=== PATIENT | female | born 1955 | race Caucasian/White ===

== ENCOUNTER → 2018-11-09 07:45 | Outpatient (CLI) | payer MEDICARE, SELFPAY ==
[2018-11-09 08:15] LABS: Basophils # 0.1 K/mm3 (0-0.2); Basophils % 0.7 % (0.1-2.0); Eosinophils # 0.2 K/mm3 (0.0-0.4); Eosinophils % 2.4 % (0.1-12.0); Hematocrit 44.9 % (37.0-47.0); Hemoglobin 14.5 g/dL (12.2-16.2); Lymphocytes # 2.4 K/mm3 (0.7-4.5); Lymphocytes % 36.6 % (10-50); Mean Corpuscular HGB Conc 32.3 g/dL (31.8-35.4); Mean Corpuscular Hemoglobin 29.2 pg (27.0-31.2); Mean Corpuscular Volume 90.3 fl (81-99); Mean Platelet Volume 6.8 fl (7.4-10.4); Monocytes # 0.3 K/mm3 (0.1-1.0); Monocytes % 4.1 % (1.7-9.3); Neutrophils # 3.6 K/mm3 (1.8-7.8); Neutrophils % 56.2 % (37.0-80.0); Platelet Count 308 K/mm3 (142-424); Red Blood Count 4.98 M/mm3 (4.20-5.40); Red Cell Distribution Width 13.2 % (11.5-17.5); White Blood Count 6.4 K/mm3 (4.8-10.8)
[2018-11-09 09:05] LABS: Alanine Aminotransferase 27 U/L (12-78); Albumin Level 4.1 gm/dL (3.4-5.0); Albumin/Globulin Ratio 1.1 (1.1-1.8); Alkaline Phosphatase 72 U/L (46-116); Anion Gap 11.4 mEq/L (5-15); Aspartate Amino Transferase 21 U/L (15-37); Bilirubin,Total 0.4 mg/dL (0.2-1.0); Blood Urea Nitrogen 14 mg/dL (7-18); Calcium 9.3 mg/dL (8.5-10.1); Carbon Dioxide 30 mmol/L (21.0-32.0); Chloride 103 mmol/L (98-107); Chol/HDL Ratio 9.3 (1-3.5); Cholesterol 408 mg/dL (140-200); Estimated Glomerular Filt Rate 73 ml/min (>60); GFR (African American) 88 ML/MIN (>60); Globulin 3.9 gm/dl (1.3-3.2); Glucose 99 mg/dL (74-106); HDL Cholesterol 44 mg/dL (29-89); LDL Cholesterol 289 mg/dL (0-130); Potassium 4.4 mmoL/L (3.5-5.1); Sodium 140 mmol/L (136-145); T4 (Thyroxine) 7.9 ug/dl (4.7-13.3); Thyroid Stimulating Hormone 2.05 uIU/ml (0.358-3.740); Triglycerides 374 mg/dL (30-200); VLDL Cholesterol 75 mg/dL (0-40)
[2018-11-10 22:28] LABS: Vitamin D 25 Hydroxy 29.9 ng/mL (30.0-100.0)
== END ==
PROVIDERS: Visit Provider Nurse Practitioner Family
DX: E78.5 Hyperlipidemia, unspecified (principal); G89.29 Other chronic pain; M54.9 Dorsalgia, unspecified; R53.83 Other fatigue; E55.9 Vitamin D deficiency, unspecified
CPT/HCPCS: 36415; 80053; 80061; 82652; 84436; 84443; 85025

== ENCOUNTER → 2018-12-14 09:31 | Outpatient (CLI) | payer MEDICARE, MEDICAID, SELFPAY ==
--- NOTE | 2018-12-14 09:32 | MM_ITS ---
PROCEDURE: MM DIG SCREENING MAMM BI W/CAD CLINICAL INDICATION: baseline screening There is a history of breast cancer in patient's mother diagnosed after menopause and patient's maternal aunt diagnosed after menopause. COMPARISON: No exams were available for comparison TECHNIQUE: Standard CC and MLO images were obtained. R2 CAD reviewed. FINDINGS: Prominent diffuse somewhat heterogenic fibroglandular densities are seen in both breasts and the findings are fairly symmetrical bilaterally. There is a benign-appearing nodular density inferior central portion left breast at the 6 o'clock position and since are no previous studies for comparison recommended patient return for spot compression views and ultrasound for additional evaluation. There are no suspicious microcalcifications. IMPRESSION: Diffusely dense parenchymal pattern with asymmetric density left breast BI-RAD Category: 0 Need Additional Imaging Evaluation FOLLOW-UP: IMM Immediate Follow-up Recommended (A letter has been sent to the patient regarding results of the study.) Dictated by: Dr. Melecio Estrada MD 12/20/2018 13:[address] Melecio Estrada MD in [place] 12/20/2018 13:16
== END ==
PROVIDERS: PCP Nurse Practitioner Family; Visit Provider Nurse Practitioner Family
DX: Z12.31 Encounter for screening mammogram for malignant neoplasm of breast (principal)
CPT/HCPCS: 77067

== ENCOUNTER → 2018-12-14 17:07 | Outpatient (CLI) | payer MEDICARE, MEDICAID, SELFPAY | PROVIDERS: Visit Provider Nurse Practitioner Family | DX: N39.0 Urinary tract infection, site not specified (principal); Z12.31 Encounter for screening mammogram for malignant neoplasm of breast | CPT/HCPCS: 77067; 87086; 87088; 87186 ==

== ENCOUNTER → 2018-12-31 13:58 | Outpatient (CLI) | payer MEDICARE, MEDICAID, SELFPAY ==
--- NOTE | 2018-12-31 13:59 | US_ITS ---
PROCEDURE: US BREAST LT COMPLETE CLINICAL INDICATION: abnormal mamm asymmetric density on current Mammogram with no previous studies available for comparison COMPARISON: MM DIG MAMM DX UNILAT LT CAD from 12/31/2018 FINDINGS: There is a small hypoechoic solid nodular lesion at 10 o'clock position near the nipple measuring 0.3 by 0.3 cm. There is a 2nd somewhat oval hypoechoic solid lesion at the 7 o'clock position near the nipple measuring 0.9 x 0.4 by 1.0 cm in this shows rather homogeneous echogenicity and likely is a fibroadenoma. This likely corresponds to the asymmetric density which was evaluated with additional views on mammograms performed the same date even though the measurements suggest that it is slightly larger than the lesion seen on the mammogram. No other abnormality seen. There is normal appearing node in the axilla. IMPRESSION: Probable small benign-appearing solid lesions as described and recommend the patient return for six-month follow-up ultrasound along with a 6 month mammogram to evaluate for interval stability. Dictated by: Dr. Melecio Estrada MD 01/06/2019 18:[address] Melecio Estrada MD in [place] 01/06/2019 20:49
--- NOTE | 2018-12-31 13:59 | MM_ITS ---
PROCEDURE: MM DIG MAMM DX UNILAT LT CAD CLINICAL INDICATION: abnormal findings left breast COMPARISON: MM DIG SCREENING MAMM BI W/CAD from 12/14/2018 TECHNIQUE: Spot-compression MLO and CC views were obtained along with a 90 degree lateral view FINDINGS: The asymmetric density described earlier does not press out on the additional views but shows rather well-defined smooth borders. There is no associated architectural distortion. Ultrasound performed the same date showed a small solid lesion with homogeneous echogenicity suggesting that this represents a small fibroadenoma. Since there are no previous studies available for comparison recommend the patient have a six-month follow-up left mammogram and ultrasound to evaluate for interval stability. IMPRESSION: Heterogenic breast density with asymmetric nodular lesion 6- 7 o'clock position likely representing a fibroadenoma BI-RAD Category: 3 Probably Benign Finding Short Term Follow-up FOLLOW-UP: 6M 6Month Follow-up (A letter has been sent to the patient regarding results of the study.) Dictated by: Dr. Melecio Estrada MD 01/06/2019 20:[address] Melecio Estrada MD in [place] 01/06/2019 20:44
== END ==
PROVIDERS: PCP Nurse Practitioner Family; Visit Provider Nurse Practitioner Family
DX: R92.8 Other abnormal and inconclusive findings on diagnostic imaging of breast (principal)
CPT/HCPCS: 76641; 77065

== ENCOUNTER → 2019-04-10 16:54 | Outpatient (CLI) | payer MEDICARE, MEDICAID, SELFPAY ==
[2019-04-10 18:41] LABS: Amphetamine/Metha Screen,Urine Negative ng/mL (<1000); Barbiturates Screen,Urine Negative ng/mL (<200); Benzodiazepines Screen,Urine Negative ng/mL (<200); Cannabinoid Screen,Urine Negative ng/mL (<50); Cocaine Screen,Urine Negative ng/mL (<300); Methadone Screen,Urine Negative ng/mL (<300); Opiate Screen,Urine Negative ng/mL (<300); Phencyclidine Screen,Urine Negative ng/mL (<25)
== END ==
PROVIDERS: Visit Provider Nurse Practitioner Family
DX: Z79.899 Other long term (current) drug therapy (principal)
CPT/HCPCS: 80305

== ENCOUNTER → 2019-04-23 09:12 | Outpatient (CLI) | payer MEDICARE, MEDICAID, SELFPAY ==
[2019-04-23 09:44] LABS: Basophils % 0.7 % (0.1-2.0); Eosinophils # 0.2 K/mm3 (0.0-0.4); Eosinophils % 2.5 % (0.1-12.0); Hematocrit 43.9 % (37.0-47.0); Hemoglobin 14.3 g/dL (12.2-16.2); Lymphocytes # 2.1 K/mm3 (0.7-4.5); Lymphocytes % 33.4 % (10-50); Mean Corpuscular HGB Conc 32.5 g/dL (31.8-35.4); Mean Corpuscular Hemoglobin 29.1 pg (27.0-31.2); Mean Corpuscular Volume 89.6 fl (81-99); Mean Platelet Volume 7.3 fl (7.4-10.4); Monocytes # 0.3 K/mm3 (0.1-1.0); Monocytes % 4.2 % (1.7-9.3); Neutrophils # 3.7 K/mm3 (1.8-7.8); Neutrophils % 59.1 % (37.0-80.0); Platelet Count 297 K/mm3 (142-424); Red Cell Distribution Width 13.1 % (11.5-17.5); White Blood Count 6.3 K/mm3 (4.8-10.8)
[2019-04-23 10:06] LABS: Hemoglobin A1C 5.7 % (0.0-7.0)
[2019-04-23 10:59] LABS: Alanine Aminotransferase 33 U/L (9-52); Albumin/Globulin Ratio 1.1 (1.1-1.8); Alkaline Phosphatase 78 U/L (46-116); Anion Gap 17.3 mEq/L (5-15); Aspartate Amino Transferase 24 U/L (15-37); Bilirubin,Total 0.4 mg/dL (0.2-1.0); Blood Urea Nitrogen 19 mg/dL (7-18); Calcium 9.4 mg/dL (8.5-10.1); Carbon Dioxide 25 mmol/L (21.0-32.0); Chloride 105 mmol/L (98-107); Chol/HDL Ratio 4.5 (1-3.5); Cholesterol 227 mg/dL (140-200); Creatinine,Serum 0.93 mg/dL (0.55-1.02); Estimated Glomerular Filt Rate 61 ml/min (>60); GFR (African American) 74 ML/MIN (>60); Globulin 3.6 gm/dl (1.3-3.2); Glucose 103 mg/dL (74-106); HDL Cholesterol 50 mg/dL (29-89); LDL Cholesterol 136 mg/dL (0-130); Potassium 4.3 mmoL/L (3.5-5.1); Sodium 143 mmol/L (137-145); T4 (Thyroxine) 6.8 ug/dl (4.7-13.3); Thyroid Stimulating Hormone 1.59 uIU/ml (0.358-3.740); Total Protein,Serum 7.6 g/dL (6.4-8.2); Triglycerides 207 mg/dL (30-200); VLDL Cholesterol 41 mg/dL (0-40)
[2019-04-24 16:30] LABS: Vitamin D 25 Hydroxy 34.6 ng/mL (30.0-100.0)
== END ==
PROVIDERS: Visit Provider Nurse Practitioner Family
DX: Z79.899 Other long term (current) drug therapy (principal); G62.9 Polyneuropathy, unspecified
CPT/HCPCS: 36415; 80053; 80061; 82652; 83036; 84436; 84443; 85025

== ENCOUNTER → 2019-04-23 09:34 | Outpatient (POV) | payer MEDICARE, MEDICAID, SELFPAY | PROVIDERS: Visit Provider Dermatology | DX: Z00.00 Encounter for general adult medical examination without abnormal findings (principal) ==

== ENCOUNTER → 2019-07-08 08:46 | Outpatient (CLI) | payer MEDICARE, MEDICAID, SELFPAY ==
--- NOTE | 2019-07-08 08:53 | XR_ITS ---
PROCEDURE: XR FOREARM RT 2V CLINICAL INDICATION: fall Posttraumatic pain and swelling COMPARISON: XR ELBOW RT MIN 3V from 07/08/2019 XR HUMERUS RT from 07/08/2019 FINDINGS: There is a comminuted fracture involving the radial head with a transverse component through the neck region of the radius with a longitudinal component extending into the articular surface of the proximal radius. There is minimal separation of the fracture fragments at the articular surface region of approximately 2 mm. The remaining bony elements have an unremarkable appearance. There is displaced anterior and posterior fat pad. IMPRESSION: Comminuted fracture of the proximal radius with transverse and longitudinal intra-articular component not significantly displaced with intra-articular hemarthrosis Dictated by: Shahzad Clark MD 07/08/2019 15:01 Electronically signed by Shahzad Clark MD in [place] 07/08/2019 15:02
== END ==
PROVIDERS: PCP Nurse Practitioner Family; Visit Provider Nurse Practitioner Family
DX: W19.XXXA Unspecified fall, initial encounter (principal); M25.521 Pain in right elbow; M79.601 Pain in right arm
CPT/HCPCS: 73060; 73080; 73090

== ENCOUNTER → 2019-07-18 10:11 | Outpatient (CLI) | payer MEDICARE, MEDICAID, SELFPAY ==
--- NOTE | 2019-07-18 10:11 | US_ITS ---
PROCEDURE: MM DIG MAMM DX UNILAT LT CAD Digital Breast Tomosynthesis Included CLINICAL INDICATION: abnormal mamm, follow-up abnormal mammogram COMPARISON: MM DIG SCREENING MAMM BI W/CAD from 12/14/2018 US BREAST LT COMPLETE from 12/31/2018 MM DIG MAMM DX UNILAT LT CAD from 12/31/2018 US BREAST LT COMPLETE from 07/18/2019 TECHNIQUE: Standard CC and MLO images and 3D Tomosynthesis was obtained. R2 CAD reviewed. FINDINGS: Average fibroglandular tissue noted. Asymmetric density is noted in the inferior aspect of the left breast similar to the previous exam. This is only well seen on the MLO view not readily apparent on the cc view Left breast ultrasound: There is a small hypoechoic nodule at 10 o'clock at 3 mm not significantly changed and may represent a complex cyst. At the 1 o'clock region there is a heterogeneous area of slight decreased echogenicity and may only be related to fibroglandular tissue not well delineated in both planes. The previously noted nodular lesion at 7 o'clock is not demonstrated on today's exam on ultrasound. IMPRESSION: Probably benign findings. Recommend continued six-month follow-up BI-RAD Category: 3 Probably Benign Finding Short Term Follow-up FOLLOW-UP: 6M 6Month Follow-up (A letter has been sent to the patient regarding results of the study.) Dictated by: Shahzad Clark MD 07/26/2019 12:48 Electronically signed by Shahzad Clark MD in [place] 07/26/2019 12:48
== END ==
PROVIDERS: PCP Nurse Practitioner Family; Visit Provider Nurse Practitioner Family
DX: R92.8 Other abnormal and inconclusive findings on diagnostic imaging of breast (principal)
CPT/HCPCS: 76641; 77061; 77065; G0279

== ENCOUNTER 2019-07-19 08:36 | Outpatient (RCR) | payer MEDICARE, MEDICAID, SELFPAY | END 2019-07-19 08:40 | disposition home or self-care (01) | LOC: PT 08:36 | PROVIDERS: PCP Nurse Practitioner Family; Visit Provider Orthopaedic Surgery | DX: M25.521 Pain in right elbow (principal) | CPT/HCPCS: 97010; 97014; 97163; G0283 ==

== ENCOUNTER → 2019-07-26 08:08 | Outpatient (CLI) | payer MEDICARE, MEDICAID, SELFPAY ==
--- NOTE | 2019-07-26 08:14 | XR_ITS ---
PROCEDURE: XR ELBOW RT 2V CLINICAL INDICATION: radius FX COMPARISON: XR ELBOW RT MIN 3V from 07/08/2019 FINDINGS: There has been interval early healing of the comminuted fracture of the radial head. There is subtle blurring of the fracture lines. There is definitely less soft tissue swelling of the lower arm and proximal forearm when compared to the previous study. A small hemarthrosis remains with a small posterior fat pad sign seen. IMPRESSION: Early healing of comminuted fracture of the radial head as noted Dictated by: Dr. Melecio Estrada MD 07/26/2019 08:[address] Melecio Estrada MD in [place] 07/26/2019 08:40
== END ==
PROVIDERS: PCP Nurse Practitioner Family; Visit Provider Orthopaedic Surgery
DX: S52.121A Displaced fracture of head of right radius, initial encounter for closed fracture (principal)
CPT/HCPCS: 73070

== ENCOUNTER → 2019-09-30 12:54 | Outpatient (CLI) | payer MEDICARE, MEDICAID, SELFPAY ==
--- NOTE | 2019-09-30 13:11 | XR_ITS ---
PROCEDURE: XR ELBOW RT MIN 3V CLINICAL INDICATION: elbow fu Follow-up fracture COMPARISON: XR ELBOW RT MIN 3V from 07/08/2019 XR ELBOW RT 2V from 07/26/2019 FINDINGS: Nondisplaced radial head fracture once again noted. Fracture line still visible. Mild degenerative changes are present at the elbow joint. IMPRESSION: Radial head fracture line is still visible consistent with incomplete bony union with mild associated degenerative changes Dictated by: Shahzad Clark MD 09/30/2019 13:56 Electronically signed by Shahzad Clark MD in [place] 09/30/2019 13:56
== END ==
PROVIDERS: PCP Nurse Practitioner Family; Visit Provider Orthopaedic Surgery
DX: M25.521 Pain in right elbow (principal)
CPT/HCPCS: 73080

== ENCOUNTER → 2019-11-15 08:20 | Outpatient (CLI) | payer MEDICARE, MEDICAID, SELFPAY ==
--- NOTE | 2019-11-15 08:24 | XR_ITS ---
PROCEDURE: XR ELBOW RT MIN 3V CLINICAL INDICATION: right radial head fracture fu COMPARISON: CR XR ELBOW RT 2V from 07/26/2019 FINDINGS: Comparison made the previous stone right elbow film from 07/26/2019. The small avulsion fracture of the radial head appears essentially healed at this time. The posterior fat pad sign seen on the previous study has resolved consistent with resolving hemarthrosis. IMPRESSION: Essentially healed radial head fracture Dictated by: Dr. Melecio Estrada MD 11/15/2019 08:53 Dr. Melecio Estrada MD in [place] 11/15/2019 08:53
== END ==
PROVIDERS: PCP Nurse Practitioner Family; Visit Provider Orthopaedic Surgery
DX: S52.123A Displaced fracture of head of unspecified radius, initial encounter for closed fracture (principal)
CPT/HCPCS: 73080

== ENCOUNTER → 2020-01-23 13:33 | Outpatient (CLI) | payer MEDICARE, MEDICAID, SELFPAY ==
--- NOTE | 2020-01-23 13:33 | MM_ITS ---
PROCEDURE: MM DIG MAMM BI DX W/CAD Digital Breast Tomosynthesis Included CLINICAL INDICATION: 6 mth f/u abn mamm COMPARISON: MG MM DIG SCREENING MAMM BI W/CAD from 12/14/2018 MG MM DIG MAMM DX UNILAT LT CAD from 12/31/2018 MG MM DIG MAMM DX UNILAT LT CAD from 07/18/2019 TECHNIQUE: Standard CC and MLO images and 3D Tomosynthesis was obtained. R2 CAD reviewed. FINDINGS: Views heterogenic fibroglandular densities are seen throughout both breast. Again noted is the asymmetric nodular density lower central portion left breast at the 6 o'clock position stable and unchanged from the previous exams. There are stable tiny nodular benign-appearing there is no suspicious lesion and no suspicious microcalcifications. Densities upper outer quadrants of each breast. IMPRESSION: Moderate heterogenic breast density with no suspicious lesions seen BI-RAD Category: 2 Benign Finding(s) FOLLOW-UP: 1YR 1 Year Follow-up (A letter has been sent to the patient regarding results of the study.) Dictated by: Dr. Melecio Estrada MD 01/31/2020 08:07 Dr. Melecio Estrada MD in [place] 01/31/2020 08:07
--- NOTE | 2020-01-23 13:33 | US_ITS ---
PROCEDURE: US BREAST LT COMPLETE CLINICAL INDICATION: 6 mth f/u abn mamm COMPARISON: MG MM DIG MAMM DX UNILAT LT CAD from 07/18/2019 US US BREAST LT COMPLETE from 07/18/2019 FINDINGS: Small hypoechoic solid-appearing lesion 10 o'clock position near the nipple measuring 0.4 by 0.4 x 0.4 cm showing slightly heterogenic internal echogenicity. It is basically unchanged in size and overall appearance from the previous ultrasound exam 07/18/2019. This likely is a small fibroadenoma. There are findings suggesting ductal hyperplasia in the circumareolar region. There are couple normal appearing nodes in the axilla. IMPRESSION: Probable fibroadenoma which appears basically stable but recommend another follow-up ultrasound in July of 2020 at the time of the yearly mammogram Dictated by: Dr. Melecio Estrada MD 02/21/2020 12:06 Dr. Melecio Estrada MD in [place] 02/21/2020 12:06
== END ==
PROVIDERS: PCP Nurse Practitioner Family; Visit Provider Nurse Practitioner Family
DX: R92.8 Other abnormal and inconclusive findings on diagnostic imaging of breast (principal)
CPT/HCPCS: 76641; 77062; 77066; G0279

== ENCOUNTER → 2020-03-25 14:32 | Outpatient (CLI) | payer MEDICARE, MEDICAID, SELFPAY ==
[2020-03-25 14:48] LABS: Alanine Aminotransferase 29 U/L (12-78); Albumin Level 4.7 g/dl (3.5-5.0); Albumin/Globulin Ratio 1.4 (1.1-1.8); Alkaline Phosphatase 90 U/L (38-126); Anion Gap 11.9 mEq/L (5-15); Aspartate Amino Transferase 34 U/L (14-36); Bilirubin,Total 0.5 mg/dl (0.2-1.3); Blood Urea Nitrogen 16 mg/dl (7-17); Calcium 9.6 mg/dl (8.4-10.2); Carbon Dioxide 28 mmol/L (22.0-30.0); Chloride 103 mmol/L (98-107); Cholesterol 206 mg/dl (140-200); Estimated Glomerular Filt Rate 63 ml/min (>60); GFR (African American) 77 ML/MIN (>60); Globulin 3.4 g/dL (1.3-3.2); Glucose 111 mg/dl (74-100); HDL Cholesterol 51 mg/dl (40-60); Potassium 3.9 mmoL/L (3.5-5.1); Sodium 139 mmol/L (136-145); Total Protein,Serum 8.1 g/dl (6.3-8.2); Triglycerides 230 mg/dl (30-150); VLDL Cholesterol 46 mg/dL (0-40)
[2020-03-25 14:59] LABS: Direct LDL Cholesterol 108.32 mg/dL (100-129)
[2020-03-25 15:01] LABS: Basophils # 0.1 K/mm3 (0-0.2); Basophils % 1.2 % (0.1-2.0); Eosinophils # 0.1 K/mm3 (0.0-0.4); Eosinophils % 2.2 % (0.1-12.0); Hematocrit 44.4 % (37.0-47.0); Hemoglobin 15.1 g/dL (12.2-16.2); Lymphocytes % 34.8 % (10-50); Mean Corpuscular Volume 90.9 fl (81-99); Mean Platelet Volume 8.5 fl (7.4-10.4); Monocytes # 0.2 K/mm3 (0.1-1.0); Monocytes % 4.2 % (1.7-9.3); Neutrophils # 3.3 K/mm3 (1.8-7.8); Neutrophils % 57.6 % (37.0-80.0); Platelet Count 303 K/mm3 (142-424); Red Blood Count 4.89 M/mm3 (4.20-5.40); Red Cell Distribution Width 13.4 % (11.5-17.5); White Blood Count 5.7 K/mm3 (4.8-10.8)
[2020-03-25 15:05] LABS: T4 (Thyroxine) 7.8 ug/dl (5.53-11.0)
[2020-03-25 15:18] LABS: Thyroid Stimulating Hormone 1.79 uIU/mL (0.465-4.68)
== END ==
PROVIDERS: Visit Provider Nurse Practitioner Family
DX: E78.5 Hyperlipidemia, unspecified (principal); F32.9 Major depressive disorder, single episode, unspecified
CPT/HCPCS: 80053; 80061; 84436; 84443; 85025

== ENCOUNTER → 2020-03-30 14:10 | Outpatient (CLI) | payer MEDICARE, MEDICAID, SELFPAY ==
[2020-03-30 15:34] LABS: Hemoglobin A1C 5.6 % (4.0-6.0)
== END ==
PROVIDERS: Visit Provider Nurse Practitioner Family
DX: E11.9 Type 2 diabetes mellitus without complications (principal)
CPT/HCPCS: 83036

== ENCOUNTER → 2020-04-14 14:32 | Outpatient (CLI) | payer MEDICARE, MEDICAID, SELFPAY ==
--- NOTE | 2020-04-14 14:32 | CT_ITS ---
PROCEDURE: CT LUNG SCREENING CLINICAL INDICATION: screening Former smoker Quit smoking 4 years ago 30+ pack year smoking history COMPARISON: No exams were available for comparison TECHNIQUE: The exam was performed on a GE Light Speed [address] scanner using 2.90 mGy CTDI. A low dose helical CT CHEST was performed on a multi-detector scanner. All CT scans at the facility use one or more dose reduction, viz: automated exposure control, ma/kV adjustment per patient size (including targeted exams where dose is matched to indication, i.e. head), or iterative reconstruction technique. The LDCT was performed in a facility that meets the criteria for the screening program. Data regarding this exam was submitted to ACR which is an approved registry. The order for this exam indicates that it came as a result of a lung cancer screening counseling shard decision-making visit that included all the elements required of such a visit including smoking cessation. The radiologist interpreting this exam meets the [facility] criteria for the LDCT lung cancer screening program. The exam is reported using the Lung-RADS classification scale and reported to the ACR registry. NOTE: This study was performed for the specific purposes of lung cancer screening and is not an alternative to diagnostic chest CT. RADIATION DOSE: CTDI vol(CT dose Index-volume) = 2.90mG DLP (Dose Length Product) = 108.12 mGcm FINDINGS: There is calcified granuloma in the right upper lobe. Atelectatic or fibrotic changes are present in the lung bases. OTHER FINDINGS: Small hiatal hernia IMPRESSION: Lung-RADS Category 1 Negative Follow-up: Continue annual screening with LDCT in 12 months Dictated by: Shahzad Clark MD 04/20/2020 05:16 Shahzad Clark MD in [place] 04/20/2020 05:16
== END ==
PROVIDERS: PCP Nurse Practitioner Family; Visit Provider Nurse Practitioner Family
DX: Z87.891 Personal history of nicotine dependence (principal); Z12.11 Encounter for screening for malignant neoplasm of colon
CPT/HCPCS: 71271

== ENCOUNTER → 2020-06-19 13:55 | Outpatient (CLI) | payer MEDICARE, MEDICAID, SELFPAY ==
[2020-06-19 14:05] LABS: Chloride 104 mmol/L (98-107)
[2020-06-19 14:06] LABS: Potassium 4.4 mmoL/L (3.5-5.1); Sodium 142 mmol/L (136-145)
[2020-06-19 14:08] LABS: Alanine Aminotransferase 34 U/L (12-78); Albumin/Globulin Ratio 1.6 (1.1-1.8); Alkaline Phosphatase 82 U/L (38-126); Anion Gap 13.4 mEq/L (5-15); Aspartate Amino Transferase 40 U/L (14-36); Bilirubin,Total 0.6 mg/dl (0.2-1.3); Blood Urea Nitrogen 20 mg/dl (7-17); Carbon Dioxide 29 mmol/L (22.0-30.0); Estimated Glomerular Filt Rate 72 ml/min (>60); GFR (African American) 87 ML/MIN (>60); Globulin 3.1 g/dL (1.3-3.2); Total Protein,Serum 8.1 g/dl (6.3-8.2)
[2020-06-19 14:09] LABS: Chol/HDL Ratio 3.8 (1-3.5); Cholesterol 193 mg/dl (140-200); Glucose 99 mg/dl (74-100); HDL Cholesterol 51 mg/dl (40-60); Triglycerides 121 mg/dl (30-150); VLDL Cholesterol 24 mg/dL (0-40)
[2020-06-19 14:12] LABS: Basophils # 0.1 K/mm3 (0-0.2); Basophils % 0.7 % (0.1-2.0); Eosinophils # 0.2 K/mm3 (0.0-0.4); Eosinophils % 2.6 % (0.1-12.0); Hematocrit 44.3 % (37.0-47.0); Hemoglobin 14.1 g/dL (12.2-16.2); Lymphocytes # 2.3 K/mm3 (0.7-4.5); Mean Corpuscular HGB Conc 31.9 g/dL (31.8-35.4); Mean Corpuscular Hemoglobin 29.2 pg (27.0-31.2); Mean Corpuscular Volume 91.5 fl (81-99); Mean Platelet Volume 7.5 fl (7.4-10.4); Monocytes # 0.4 K/mm3 (0.1-1.0); Monocytes % 5.4 % (1.7-9.3); Neutrophils # 3.8 K/mm3 (1.8-7.8); Neutrophils % 57.3 % (37.0-80.0); Platelet Count 321 K/mm3 (142-424); Red Blood Count 4.84 M/mm3 (4.20-5.40); White Blood Count 6.7 K/mm3 (4.8-10.8)
[2020-06-19 14:16] LABS: Creatinine,Urine Random 30 mg/dL (Not Estab.)
[2020-06-19 14:19] LABS: Microalbumin < 6.000 mg/L (0-16.7)
[2020-06-19 14:20] LABS: Direct LDL Cholesterol 109.05 mg/dL (100-129)
[2020-06-19 14:25] LABS: T4 (Thyroxine) 7.8 ug/dl (5.53-11.0)
[2020-06-19 14:39] LABS: Hemoglobin A1C 5.9 % (4.0-6.0); Thyroid Stimulating Hormone 0.79 uIU/mL (0.465-4.68)
== END ==
PROVIDERS: Visit Provider Nurse Practitioner Family
DX: E78.5 Hyperlipidemia, unspecified (principal); E11.9 Type 2 diabetes mellitus without complications
CPT/HCPCS: 80053; 80061; 82043; 82570; 83036; 84436; 84443; 85025

== ENCOUNTER → 2020-09-16 15:52 | Outpatient (CLI) | payer MEDICARE, MEDICAID, SELFPAY ==
[2020-09-16 16:01] LABS: Basophils # 0.1 K/mm3 (0-0.2); Basophils % 1.3 % (0.1-2.0); Eosinophils # 0.1 K/mm3 (0.0-0.4); Eosinophils % 2.8 % (0.1-12.0); Hematocrit 41.1 % (37.0-47.0); Hemoglobin 14.2 g/dL (12.2-16.2); Mean Corpuscular HGB Conc 34.5 g/dL (31.8-35.4); Mean Corpuscular Hemoglobin 30.2 pg (27.0-31.2); Mean Corpuscular Volume 87.7 fl (81-99); Mean Platelet Volume 8.2 fl (7.4-10.4); Monocytes # 0.3 K/mm3 (0.1-1.0); Monocytes % 6.3 % (1.7-9.3); Neutrophils # 2.6 K/mm3 (1.8-7.8); Neutrophils % 50.6 % (37.0-80.0); Platelet Count 290 K/mm3 (142-424); Red Blood Count 4.69 M/mm3 (4.20-5.40); Red Cell Distribution Width 13.8 % (11.5-17.5); White Blood Count 5.2 K/mm3 (4.8-10.8)
[2020-09-16 16:45] LABS: Hemoglobin A1C 5.7 % (4.0-6.0)
[2020-09-16 16:50] LABS: Chloride 104 mmol/L (98-107); Sodium 142 mmol/L (136-145)
[2020-09-16 16:51] LABS: Potassium 4.5 mmoL/L (3.5-5.1)
[2020-09-16 16:53] LABS: Alanine Aminotransferase 29 U/L (12-78); Albumin Level 4.7 g/dl (3.5-5.0); Albumin/Globulin Ratio 1.6 (1.1-1.8); Alkaline Phosphatase 95 U/L (38-126); Anion Gap 14.5 mEq/L (5-15); Aspartate Amino Transferase 33 U/L (14-36); Bilirubin,Total 0.4 mg/dl (0.2-1.3); Blood Urea Nitrogen 19 mg/dl (7-17); Carbon Dioxide 28 mmol/L (22.0-30.0); Cholesterol 175 mg/dl (140-200); Estimated Glomerular Filt Rate 72 ml/min (>60); GFR (African American) 87 ML/MIN (>60); Globulin 2.9 g/dL (1.3-3.2); Total Protein,Serum 7.6 g/dl (6.3-8.2); Triglycerides 123 mg/dl (30-150); VLDL Cholesterol 25 mg/dL (0-40)
[2020-09-16 16:54] LABS: Calcium 9.3 mg/dl (8.4-10.2); Glucose 98 mg/dl (74-100); HDL Cholesterol 44 mg/dl (40-60)
[2020-09-16 17:09] LABS: 25-OH Vitamin D, Total 69.5 ng/mL (30-100)
[2020-09-16 17:11] LABS: T4 (Thyroxine) 7.4 ug/dl (5.53-11.0)
[2020-09-16 17:25] LABS: Thyroid Stimulating Hormone 0.86 uIU/mL (0.465-4.68)
== END ==
PROVIDERS: Visit Provider Nurse Practitioner Family
DX: E78.5 Hyperlipidemia, unspecified (principal); R53.83 Other fatigue; R73.03 Prediabetes; E55.9 Vitamin D deficiency, unspecified
CPT/HCPCS: 80053; 80061; 82306; 83036; 84436; 84443; 85025

== ENCOUNTER → 2020-12-16 14:27 | Outpatient (CLI) | payer MEDICARE, MEDICAID, SELFPAY ==
[2020-12-16 14:45] LABS: Alanine Aminotransferase 31 U/L (12-78); Albumin Level 4.4 g/dl (3.5-5.0); Albumin/Globulin Ratio 1.3 (1.1-1.8); Alkaline Phosphatase 79 U/L (38-126); Anion Gap 11.3 mEq/L (5-15); Aspartate Amino Transferase 36 U/L (14-36); Bilirubin,Total 0.6 mg/dl (0.2-1.3); Blood Urea Nitrogen 14 mg/dl (7-17); Calcium 9.3 mg/dl (8.4-10.2); Carbon Dioxide 29 mmol/L (22.0-30.0); Chloride 107 mmol/L (98-107); Chol/HDL Ratio 4.2 (1-3.5); Cholesterol 185 mg/dl (140-200); Estimated Glomerular Filt Rate 101 ml/min (>60); GFR (African American) 122 ML/MIN (>60); Globulin 3.3 g/dL (1.3-3.2); Glucose 99 mg/dl (74-100); HDL Cholesterol 44 mg/dl (40-60); Potassium 4.3 mmoL/L (3.5-5.1); Sodium 143 mmol/L (136-145); Total Protein,Serum 7.7 g/dl (6.3-8.2); Triglycerides 164 mg/dl (30-150); VLDL Cholesterol 33 mg/dL (0-40)
[2020-12-16 14:57] LABS: Direct LDL Cholesterol 100.41 mg/dL (100-129)
[2020-12-16 14:58] LABS: Amphetamine/Metha Screen,Urine Negative ng/ml (<1000); Barbiturates Screen,Urine Negative ng/ml (<200)
[2020-12-16 15:00] LABS: Basophils # 0.1 K/mm3 (0-0.2); Basophils % 0.9 % (0.1-2.0); Eosinophils # 0.1 K/mm3 (0.0-0.4); Eosinophils % 2.3 % (0.1-12.0); Hematocrit 44.5 % (37.0-47.0); Hemoglobin 14.6 g/dL (12.2-16.2); Lymphocytes # 1.8 K/mm3 (0.7-4.5); Lymphocytes % 30.5 % (10-50); Mean Corpuscular HGB Conc 32.8 g/dL (31.8-35.4); Mean Corpuscular Hemoglobin 29.9 pg (27.0-31.2); Mean Corpuscular Volume 91.2 fl (81-99); Mean Platelet Volume 8.9 fl (7.4-10.4); Monocytes # 0.3 K/mm3 (0.1-1.0); Monocytes % 4.7 % (1.7-9.3); Neutrophils # 3.7 K/mm3 (1.8-7.8); Neutrophils % 61.7 % (37.0-80.0); Platelet Count 403 K/mm3 (142-424); Red Blood Count 4.87 M/mm3 (4.20-5.40); Red Cell Distribution Width 13.7 % (11.5-17.5)
[2020-12-16 15:02] LABS: Benzodiazepines Screen,Urine Negative ng/ml (<200); Free T4 (Free Thyroxine) 1.21 ng/dl (0.78-2.19)
[2020-12-16 15:03] LABS: Cannabinoid Screen,Urine Negative ng/ml (<50)
[2020-12-16 15:04] LABS: Cocaine Screen,Urine Negative ng/ml (<300); Creatinine,Urine Random 95 mg/dL (Not Estab.); Methadone Screen,Urine Negative ng/ml (<300); Microalbumin < 6.000 mg/L (0-16.7)
[2020-12-16 15:05] LABS: Opiate Screen,Urine Negative ng/ml (<300); Phencyclidine Screen,Urine Negative ng/ml (<25)
[2020-12-16 15:16] LABS: Thyroid Stimulating Hormone 0.95 uIU/mL (0.465-4.68)
== END ==
PROVIDERS: Visit Provider Nurse Practitioner Family
DX: R73.03 Prediabetes (principal); Z79.899 Other long term (current) drug therapy; E78.5 Hyperlipidemia, unspecified
CPT/HCPCS: 80053; 80061; 80305; 82043; 82570; 83036; 84439; 84443; 85025

== ENCOUNTER → 2021-06-14 19:16 | Outpatient (CLI) | payer MEDICARE, MEDICAID, SELFPAY ==
[2021-06-14 17:04] LABS: MANUAL DIFFERENTIAL MANUAL DIFFERENTIAL (MANUAL DIFF)
[2021-06-14 17:45] LABS: Basophils # 0.1 K/mm3 (0-0.2); Basophils % 1.2 % (0.1-2.0); Eosinophils # 0.1 K/mm3 (0.0-0.4); Eosinophils % 0.9 % (0.1-12.0); Hematocrit 42.6 % (37.0-47.0); Hemoglobin 14.1 g/dL (12.2-16.2); Lymphocytes # 1.9 K/mm3 (0.7-4.5); Mean Corpuscular HGB Conc 33.2 g/dL (31.8-35.4); Mean Corpuscular Hemoglobin 29.9 pg (27.0-31.2); Mean Corpuscular Volume 90.2 fl (81-99); Mean Platelet Volume 8.1 fl (7.4-10.4); Monocytes # 0.3 K/mm3 (0.1-1.0); Monocytes % 4.1 % (1.7-9.3); Neutrophils # 4.1 K/mm3 (1.8-7.8); Neutrophils % 63.8 % (37.0-80.0); Platelet Count 308 K/mm3 (142-424); Red Blood Count 4.73 M/mm3 (4.20-5.40); Red Cell Distribution Width 13.1 % (11.5-17.5); White Blood Count 6.4 K/mm3 (4.8-10.8)
[2021-06-14 17:50] LABS: Alanine Aminotransferase 29 U/L (12-78); Albumin Level 4.6 g/dl (3.5-5.0); Albumin/Globulin Ratio 1.6 (1.1-1.8); Alkaline Phosphatase 89 U/L (38-126); Aspartate Amino Transferase 31 U/L (14-36); Bilirubin,Total 0.5 mg/dl (0.2-1.3); Blood Urea Nitrogen 16 mg/dl (7-17); Calcium 9.2 mg/dl (8.4-10.2); Carbon Dioxide 28 mmol/L (22.0-30.0); Chloride 106 mmol/L (98-107); Chol/HDL Ratio 3.9 (1-3.5); Cholesterol 176 mg/dl (140-200); Estimated Glomerular Filt Rate 72 ml/min (>60); GFR (African American) 87 ML/MIN (>60); Globulin 2.8 g/dL (1.3-3.2); Glucose 112 mg/dl (74-100); HDL Cholesterol 45 mg/dl (40-60); Sodium 142 mmol/L (136-145); Total Protein,Serum 7.4 g/dl (6.3-8.2); Triglycerides 208 mg/dl (30-150); VLDL Cholesterol 42 mg/dL (0-40)
[2021-06-14 18:01] LABS: Direct LDL Cholesterol 84.53 mg/dL (100-129)
[2021-06-14 18:07] LABS: Free T4 (Free Thyroxine) 1.15 ng/dl (0.78-2.19)
[2021-06-14 18:22] LABS: Thyroid Stimulating Hormone 1.12 uIU/mL (0.465-4.68)
[2021-06-14 18:29] LABS: Hemoglobin A1C 5.8 % (4.0-6.0)
[2021-06-14 18:51] LABS: Eosinophils % 1 % (0-3); Lymphocytes % 33 % (10-50); Monocytes % 4 % (2-9); Neutrophils % 61 % (42-76); Total Cells Counted 100
[2021-06-14 18:52] LABS: Platelet Estimate Normal; RBC Morphology Normal
== END ==
PROVIDERS: Visit Provider Nurse Practitioner Family
DX: R73.03 Prediabetes (principal); E78.5 Hyperlipidemia, unspecified; Z79.899 Other long term (current) drug therapy
CPT/HCPCS: 80053; 80061; 83036; 84439; 84443; 85007; 85014; 85018; 85048; 85049

== ENCOUNTER → 2021-09-09 16:26 | Outpatient (CLI) | payer MEDICARE, MEDICAID, SELFPAY ==
[2021-09-09 15:09] LABS: Basophils # 0.1 K/mm3 (0-0.2); Basophils % 0.8 % (0.1-2.0); Eosinophils # 0.3 K/mm3 (0.0-0.4); Eosinophils % 4.8 % (0.1-12.0); Hematocrit 42.4 % (37.0-47.0); Hemoglobin 14.2 g/dL (12.2-16.2); Lymphocytes # 1.7 K/mm3 (0.7-4.5); Lymphocytes % 24.7 % (10-50); Mean Corpuscular HGB Conc 33.5 g/dL (31.8-35.4); Mean Corpuscular Hemoglobin 29.5 pg (27.0-31.2); Mean Platelet Volume 7.6 fl (7.4-10.4); Monocytes # 0.4 K/mm3 (0.1-1.0); Monocytes % 5.2 % (1.7-9.3); Neutrophils # 4.5 K/mm3 (1.8-7.8); Neutrophils % 64.5 % (37.0-80.0); Platelet Count 354 K/mm3 (142-424); Red Blood Count 4.82 M/mm3 (4.20-5.40); Red Cell Distribution Width 12.5 % (11.5-17.5)
[2021-09-09 15:24] LABS: Chloride 103 mmol/L (98-107); Potassium 4.3 mmoL/L (3.5-5.1); Sodium 139 mmol/L (136-145)
[2021-09-09 15:26] LABS: Amylase 48 U/L (30-110); Blood Urea Nitrogen 16 mg/dl (7-17); Estimated Glomerular Filt Rate 72 ml/min (>60); GFR (African American) 87 ML/MIN (>60)
[2021-09-09 15:27] LABS: Alanine Aminotransferase 27 U/L (12-78); Albumin Level 4.4 g/dl (3.5-5.0); Albumin/Globulin Ratio 1.5 (1.1-1.8); Alkaline Phosphatase 87 U/L (38-126); Anion Gap 11.3 mEq/L (5-15); Aspartate Amino Transferase 36 U/L (14-36); Bilirubin,Total 0.7 mg/dl (0.2-1.3); Calcium 9.5 mg/dl (8.4-10.2); Carbon Dioxide 29 mmol/L (22.0-30.0); Globulin 2.9 g/dL (1.3-3.2); Glucose 111 mg/dl (74-100); HDL Cholesterol 53 mg/dl (40-60); Lipase 124 U/L (23-300); Total Protein,Serum 7.3 g/dl (6.3-8.2)
[2021-09-09 15:28] LABS: Chol/HDL Ratio 3.5 (1-3.5); Cholesterol 184 mg/dl (140-200); Triglycerides 169 mg/dl (30-150); VLDL Cholesterol 34 mg/dL (0-40)
[2021-09-09 15:38] LABS: Direct LDL Cholesterol 99.14 mg/dL (100-129)
[2021-09-09 15:45] LABS: 25-OH Vitamin D, Total 44.4 ng/mL (30-100)
[2021-09-09 15:57] LABS: Thyroid Stimulating Hormone 1.23 uIU/mL (0.465-4.68)
== END ==
PROVIDERS: Visit Provider Physician Assistant
DX: Z00.00 Encounter for general adult medical examination without abnormal findings (principal); R19.00 Intra-abdominal and pelvic swelling, mass and lump, unspecified site; R73.03 Prediabetes; E78.5 Hyperlipidemia, unspecified; G62.9 Polyneuropathy, unspecified
CPT/HCPCS: 80053; 80061; 82150; 82306; 83690; 84443; 85025

== ENCOUNTER → 2021-09-10 08:23 | Outpatient (CLI) | payer MEDICARE, MEDICAID, SELFPAY ==
--- NOTE | 2021-09-10 08:35 | XR_ITS ---
FINAL REPORT CLINICAL HISTORY: abdominal swelling FINDINGS: Chest: A single view of the chest demonstrates no acute cardiopulmonary process. Abdomen: Flat and upright views of the abdomen demonstrate a nonobstructive gas pattern. There is a moderate to large amount of retained stool. There is no free air. There are postoperative changes of the pelvis. IMPRESSION: No acute process. Moderate to large amount of retained stool. Reviewed, Interpreted and Dictated by Wyatt Shelton III, MD Transcribed by Padmaja Hammer Authenticated and [facility]
== END ==
PROVIDERS: PCP Physician Assistant; Visit Provider Physician Assistant
DX: R19.00 Intra-abdominal and pelvic swelling, mass and lump, unspecified site (principal)
CPT/HCPCS: 74021

== ENCOUNTER → 2021-09-21 07:14 | Outpatient (CLI) | payer MEDICARE, MEDICAID, SELFPAY ==
--- NOTE | 2021-09-21 07:15 | CT_ITS ---
FINAL REPORT TECHNIQUE: Axial images through the abdomen and pelvis were performed without contrast. This study was performed with techniques to keep radiation doses as low as reasonably achievable, (ALARA). Individualized dose reduction techniques using automated exposure control or adjustment of mA and/or kV according to the patient's size were employed. CLINICAL HISTORY: abdominal swelling and distention. FINDINGS: Abdomen: The lung bases are clear. There is a 1.8 cm cyst in the left liver lobe. The gallbladder is present. The spleen, pancreas, adrenals appear unremarkable. There is mild bilateral hydronephrosis. Pelvis: There is a large mass arising from the pelvis which appears predominantly cystic and measures approximately 27 cm in craniocaudal dimension and 22 cm in transverse dimension. There is extrinsic compression of the ureters by this mass. The urinary bladder is partially compressed. A small amount of pelvic free fluid is seen. The uterus is present. IMPRESSION: Large cystic mass arising from the pelvis, likely ovarian in origin. Ovarian neoplasia is a primary consideration. Gynecological evaluation is highly recommended. Mild bilateral hydronephrosis secondary to extrinsic compression of the ureters. Reviewed, Interpreted and Dictated by Les Sahu MD Transcribed by Tuyet Reagan Authenticated and . [facility]
--- NOTE | 2021-09-21 07:15 | MM_ITS ---
PROCEDURE INFORMATION: Exam: MG Bilateral Screening 3D Mammography Exam date and time: 09/21/2021 8:09 AM Age: 66 years old Clinical indication: Screening. Her mother had breast cancer in her 70s, and an aunt had breast cancer. TECHNIQUE: Imaging protocol: Bilateral Screening tomosynthesis and 2D mammography including computer-aided detection (CAD) when performed. COMPARISON: 1. MG MM DIG MAMM BI DX W/CAD 01/23/2020 1:46 PM 2. MG MM DIG MAMM DX UNILAT LT CAD 07/18/2019 10:23 AM 3. MG MM DIG MAMM DX UNILAT LT CAD 12/31/2018 2:41 PM 4. MG MM DIG SCREENING MAMM BI W/CAD 12/14/2018 9:52 AM FINDINGS: MAMMOGRAPHY: Breast composition: The breasts are heterogeneously dense, which may obscure small masses. Mass: No suspicious mass. Architectural distortion: None. Calcifications: No suspicious calcifications. Asymmetric density: None. Skin thickening: None. Axillary adenopathy: None. IMPRESSION: No mammographic evidence of malignancy. Annual screening is recommended unless otherwise clinically indicated. ASSESSMENT: BI-RADS Category 1: Negative
--- NOTE | 2021-09-21 07:15 | US_ITS ---
FINAL REPORT CLINICAL HISTORY: abdominal swelling, large mass in abdomen COMPARISON: CT dated September 21, 2021 FINDINGS: ABDOMINAL ULTRASOUND COMPLETE: TECHNIQUE: Ultrasound images of the abdomen were obtained. FINDINGS: There is a 2.4 x 1.4 cm cyst in the left lobe of the liver. The gallbladder is normal. The common duct is normal. The right kidney measures 12.1 cm in length and is normal in echogenicity without hydronephrosis. The left kidney measures 11.3 cm in length and is normal in echogenicity without hydronephrosis. The spleen is unremarkable. The aorta is normal in caliber. The vena cava is unremarkable. There is a large mass in the mid abdomen with internal septations and internal echoes. IMPRESSION: Large complex cystic mass highly concerning for ovarian neoplasm. Reviewed, Interpreted and Dictated by Les Sahu MD Transcribed by Tiago Clarke Authenticated and [facility]
== END ==
PROVIDERS: PCP Physician Assistant; Visit Provider Physician Assistant
DX: Z12.31 Encounter for screening mammogram for malignant neoplasm of breast (principal); R19.00 Intra-abdominal and pelvic swelling, mass and lump, unspecified site
CPT/HCPCS: 74176; 76700; 77063; 77067

== ENCOUNTER → 2021-09-22 13:59 | Outpatient (CLI) | payer MEDICARE, MEDICAID, SELFPAY ==
[2021-09-24 08:15] LABS: CA 19-9 16 U/mL (0-35)
[2021-09-24 09:14] LABS: CEA 1.8 ng/mL (0.0-4.7)
== END ==
PROVIDERS: PCP Physician Assistant; Visit Provider Obstetrics & Gynecology
DX: N83.8 Other noninflammatory disorders of ovary, fallopian tube and broad ligament (principal); R14.0 Abdominal distension (gaseous); R19.8 Other specified symptoms and signs involving the digestive system and abdomen; R97.1 Elevated cancer antigen 125 [CA 125]; R97.0 Elevated carcinoembryonic antigen [CEA]
CPT/HCPCS: 36415; 82378; 86305; 86316

== ENCOUNTER → 2022-08-03 08:58 | Outpatient (CLI) | payer MEDICARE, MEDICAID, SELFPAY ==
[2022-08-03 13:23] LABS: Basophils % 0.7 % (0.1-2.0); Eosinophils # 0.2 K/mm3 (0.0-0.4); Eosinophils % 2.9 % (0.1-12.0); Hematocrit 45.3 % (37.0-47.0); Hemoglobin 14.7 g/dL (12.2-16.2); Lymphocytes # 1.6 K/mm3 (0.7-4.5); Mean Corpuscular HGB Conc 32.4 g/dL (31.8-35.4); Mean Corpuscular Volume 89.5 fl (81-99); Mean Platelet Volume 8.8 fl (7.4-10.4); Monocytes # 0.3 K/mm3 (0.1-1.0); Monocytes % 4.6 % (1.7-9.3); Neutrophils # 4.2 K/mm3 (1.8-7.8); Neutrophils % 65.8 % (37.0-80.0); Platelet Count 359 K/mm3 (142-424); Red Blood Count 5.06 M/mm3 (4.20-5.40); Red Cell Distribution Width 13.6 % (11.5-17.5); White Blood Count 6.3 K/mm3 (4.8-10.8)
[2022-08-03 13:43] LABS: Alanine Aminotransferase 47 U/L (12-78); Albumin Level 4.9 g/dl (3.5-5.0); Albumin/Globulin Ratio 1.5 (1.1-1.8); Alkaline Phosphatase 123 U/L (38-126); Anion Gap 18.2 mEq/L (5-15); Aspartate Amino Transferase 52 U/L (14-36); Bilirubin,Total 0.6 mg/dl (0.2-1.3); Blood Urea Nitrogen 21 mg/dl (7-17); Calcium 9.3 mg/dl (8.4-10.2); Carbon Dioxide 29 mmol/L (22.0-30.0); Chloride 98 mmol/L (98-107); Chol/HDL Ratio 3.4 (1-3.5); Cholesterol 206 mg/dl (140-200); Estimated Glomerular Filt Rate 72 ml/min (>60); GFR (African American) 87 ML/MIN (>60); Globulin 3.2 g/dL (1.3-3.2); Glucose 129 mg/dl (74-100); HDL Cholesterol 61 mg/dl (40-60); Potassium 4.2 mmoL/L (3.5-5.1); Sodium 141 mmol/L (136-145); Total Protein,Serum 8.1 g/dl (6.3-8.2); Triglycerides 307 mg/dl (30-150); VLDL Cholesterol 61 mg/dL (0-40)
[2022-08-03 13:54] LABS: Direct LDL Cholesterol 107.13 mg/dL (100-129)
[2022-08-03 13:58] LABS: 25-OH Vitamin D, Total 43.5 ng/mL (30-100)
[2022-08-03 14:13] LABS: Thyroid Stimulating Hormone 1.51 uIU/mL (0.465-4.68)
[2022-08-03 20:07] LABS: Hemoglobin A1C 5.8 % (4.0-6.0)
== END ==
PROVIDERS: PCP Physician Assistant; Visit Provider Physician Assistant
DX: E55.9 Vitamin D deficiency, unspecified (principal); R73.03 Prediabetes; F43.10 Post-traumatic stress disorder, unspecified; E78.5 Hyperlipidemia, unspecified; F32.9 Major depressive disorder, single episode, unspecified; F41.9 Anxiety disorder, unspecified
CPT/HCPCS: 80053; 80061; 82306; 83036; 84443; 85025

== ENCOUNTER → 2022-09-23 09:21 | Outpatient (CLI) | payer MEDICARE, MEDICAID, SELFPAY ==
--- NOTE | 2022-09-23 09:23 | MM_ITS ---
PROCEDURE INFORMATION: Exam: MG Bilateral Screening 3D Mammography Exam date and time: 09/23/2022 9:42 AM Age: 67 years old Clinical indication: Screening examination; Family history of breast cancer in mother and in aunt TECHNIQUE: Imaging protocol: Bilateral Screening tomosynthesis and 2D mammography including computer-aided detection (CAD) when performed. COMPARISON: 1. MG MM DIG SCREENING MAMM BI W/CAD 09/21/2021 8:09 AM 2. MG MM DIG MAMM BI DX W/CAD 01/23/2020 1:46 PM FINDINGS: MAMMOGRAPHY: Breast composition: There are scattered areas of fibroglandular density. Mass: None. Architectural distortion: None. Calcifications: No suspicious calcifications. Asymmetric density: None. Skin thickening: None. Axillary adenopathy: None. IMPRESSION: No mammographic evidence of malignancy. Annual screening is recommended unless otherwise clinically indicated. ASSESSMENT: BI-RADS Category 1: Negative
== END ==
PROVIDERS: PCP Physician Assistant; Visit Provider Physician Assistant
DX: Z12.31 Encounter for screening mammogram for malignant neoplasm of breast (principal)
CPT/HCPCS: 77063; 77067

== ENCOUNTER 2023-04-26 11:43 | Outpatient (CLI) | payer MEDICARE, SELFPAY ==
[2023-04-26 12:02] LABS: Basophils # 0.1 K/mm3 (0-0.2); Basophils % 0.6 % (0.1-2.0); Eosinophils # 0.1 K/mm3 (0.0-0.4); Eosinophils % 1.2 % (0.1-12.0); Hematocrit 44.2 % (37.0-47.0); Hemoglobin 14.9 g/dL (12.2-16.2); Mean Corpuscular HGB Conc 33.7 g/dL (31.8-35.4); Mean Corpuscular Volume 89.1 fl (81-99); Mean Platelet Volume 7.8 fl (7.4-10.4); Monocytes # 0.3 K/mm3 (0.1-1.0); Monocytes % 4.2 % (1.7-9.3); Neutrophils # 5.7 K/mm3 (1.8-7.8); Neutrophils % 69.9 % (37.0-80.0); Platelet Count 283 K/mm3 (142-424); Red Blood Count 4.96 M/mm3 (4.20-5.40); Red Cell Distribution Width 13.3 % (11.5-17.5); White Blood Count 8.1 K/mm3 (4.8-10.8)
[2023-04-26 12:07] LABS: Alanine Aminotransferase 33 U/L (12-78); Albumin Level 4.8 g/dl (3.5-5.0); Albumin/Globulin Ratio 1.6 (1.1-1.8); Alkaline Phosphatase 98 U/L (38-126); Anion Gap 11.5 mEq/L (5-15); Aspartate Amino Transferase 34 U/L (14-36); Bilirubin,Total 0.4 mg/dl (0.2-1.3); Blood Urea Nitrogen 22 mg/dl (7-17); Calcium 9.9 mg/dl (8.4-10.2); Carbon Dioxide 32 mmol/L (22.0-30.0); Chloride 103 mmol/L (98-107); Chol/HDL Ratio 4.5 (1-3.5); Cholesterol 214 mg/dl (140-200); Estimated Glomerular Filt Rate 72 ml/min (>60); GFR (African American) 87 ML/MIN (>60); Glucose 111 mg/dl (74-100); HDL Cholesterol 48 mg/dl (40-60); Potassium 4.5 mmoL/L (3.5-5.1); Sodium 142 mmol/L (136-145); Total Protein,Serum 7.8 g/dl (6.3-8.2); Triglycerides 303 mg/dl (30-150); VLDL Cholesterol 61 mg/dL (0-40)
[2023-04-26 12:19] LABS: Direct LDL Cholesterol 110.31 mg/dL (100-129)
[2023-04-26 12:38] LABS: Thyroid Stimulating Hormone 0.02 uIU/mL (0.465-4.68)
[2023-04-26 13:04] LABS: Vitamin B12 > 1000 pg/mL (239-931)
== END 2023-04-26 23:59 ==
LOC: LAB.DROPOF 11:44
PROVIDERS: PCP Physician Assistant; Visit Provider Physician Assistant
DX: E78.5 Hyperlipidemia, unspecified; E55.9 Vitamin D deficiency, unspecified; G62.89 Other specified polyneuropathies; R79.1 Abnormal coagulation profile
CPT/HCPCS: 80053; 80061; 82306; 82607; 84443; 85025

== ENCOUNTER 2023-05-04 12:15 | Outpatient (CLI) | payer MEDICARE, SELFPAY ==
[2023-05-04 14:02] LABS: Thyroid Stimulating Hormone 0.02 uIU/mL (0.465-4.68)
== END 2023-05-04 23:59 ==
LOC: LAB.DROPOF 12:16
PROVIDERS: PCP Physician Assistant; Visit Provider Physician Assistant
DX: F41.9 Anxiety disorder, unspecified (principal); Z79.899 Other long term (current) drug therapy
CPT/HCPCS: 84443

== ENCOUNTER 2023-05-22 09:01 | Outpatient (CLI) | payer MEDICARE, SELFPAY ==
[2023-05-22 10:15] LABS: Free Thyroxine Index 2.3 ug/dL (5.93-13.13); T4 (Thyroxine) 7.7 ug/dl (5.53-11.0); Triiodothryronine (T3) Uptake 30 % (23.5-40.5)
[2023-05-22 10:29] LABS: Thyroid Stimulating Hormone 1.56 uIU/mL (0.465-4.68)
[2023-05-23 13:10] LABS: Thyroid Peroxidase Antibodies 13 IU/mL (0-34)
[2023-05-25 08:59] LABS: Thyroid Stimulating Immunoglob <0.10 IU/L (0.00-0.55)
== END 2023-05-22 23:59 ==
LOC: LAB 09:02
PROVIDERS: PCP Physician Assistant; Visit Provider Physician Assistant
DX: R79.89 Other specified abnormal findings of blood chemistry (principal); E03.9 Hypothyroidism, unspecified
CPT/HCPCS: 36415; 84436; 84443; 84445; 84479; 86376

== ENCOUNTER 2023-05-26 12:26 | Outpatient (CLI) | payer MEDICARE, SELFPAY ==
--- NOTE | 2023-05-26 12:27 | US_ITS ---
FINAL REPORT TECHNIQUE: Real-time grayscale and color ultrasound of the thyroid was performed. CLINICAL HISTORY: low tsh COMPARISON: None FINDINGS: The thyroid gland measures 45 mm on the right and 43 mm on the left. The isthmus measures 2 mm. The parenchyma is unremarkable . Nodules: There are multiple small nodules. The largest nodule on the right measures 13 x 10 x 6 mm mostly solid hypoechoic TR 4. The largest nodule on the left measures 8 x 7 x 5 cystic and solid isoechoic TR 2. There are several other less than 5 mm nodules. IMPRESSION: Bilateral thyroid nodules as above. Recommend follow-up ultrasound for the dominant nodule on the right in 6 to 12 months per TI-RADS criteria. Reviewed, Interpreted and Dictated by Wyatt Shelton III, MD Transcribed by Shreya Hinds Authenticated and [facility]
== END 2023-05-26 23:59 ==
LOC: RAD 12:27
PROVIDERS: PCP Physician Assistant; Visit Provider Physician Assistant
DX: R79.89 Other specified abnormal findings of blood chemistry (principal)
CPT/HCPCS: 76536

== ENCOUNTER 2024-03-27 08:24 | Outpatient (CLI) | payer MEDICARE, SELFPAY ==
--- NOTE | 2024-03-27 08:28 | MM_ITS ---
PROCEDURE INFORMATION: Exam: MG Bilateral Screening 3D Mammography Exam date and time: 03/27/2024 8:20 AM Age: 68 years old Clinical indication: Screening examination TECHNIQUE: Imaging protocol: Bilateral Screening tomosynthesis and 2D mammography including computer-aided detection (CAD) when performed. COMPARISON: 1. MG MM DIG SCREENING MAMM BI W/CAD 09/23/2022 9:42 AM 2. MG MM DIG SCREENING MAMM BI W/CAD 09/21/2021 8:09 AM FINDINGS: MAMMOGRAPHY: Breast composition: There are scattered areas of fibroglandular density. Mass: No suspicious masses. Architectural distortion: None. Calcifications: No suspicious calcifications. Asymmetric density: None. Skin thickening: None. Axillary adenopathy: None. IMPRESSION: No mammographic evidence of malignancy. Annual screening is recommended unless otherwise clinically indicated. ASSESSMENT: BI-RADS Category 1: Negative.
== END 2024-03-27 23:59 | disposition home or self-care (01) ==
LOC: RAD 08:25
PROVIDERS: PCP Physician Assistant; Visit Provider Physician Assistant
DX: Z12.31 Encounter for screening mammogram for malignant neoplasm of breast (principal)
CPT/HCPCS: 77063; 77067

== ENCOUNTER 2025-01-14 08:42 | Outpatient (CLI) | payer MEDICARE, SELFPAY ==
--- NOTE | 2025-01-14 08:45 | XR_ITS ---
FINAL REPORT TECHNIQUE: Bone densitometry calculations of the lumbar spine and left hip were obtained. CLINICAL HISTORY: SCREENING COMPARISON: None FINDINGS: Using L1-4, the bone mineral density of the spine is 0.861 g/cm2, corresponding to T-score of -1.7 and a Z score of 0.3. This is within the range of osteopenia. Using the left hip, the bone mineral density of the femoral neck is 0.672 g/cm2, corresponding to a T-score of -1.6 and a Z-score of 0.1. This is within the range of osteopenia. FRAX 10 year fracture risk is 2.3% for a hip fracture and 15% for a major osteoporotic fracture. NOTE: T-score: Standard deviation compared with peak bone mass of young adult mean. *Following the recommendations of the International Society of Bone densitometry, classification of hip BMD is based on the lower of two T-scores; total hip or femoral neck. IMPRESSION: 1. Bone mineral density of the lumbar spine within the range of osteopenia. 2. Bone mineral density of the left femoral neck within the range of osteopenia. Reviewed, Interpreted and Dictated by Zohra Irwin MD Transcribed by Shreya Hinds Authenticated and [facility]
--- NOTE | 2025-01-14 08:46 | CT_ITS ---
FINAL REPORT TECHNIQUE: Thin section axial images were obtained through the lungs using a low-dose technique per lung cancer screening protocol. Reconstruction images were obtained using the axial data. Exam was performed using dose reduction technique. CLINICAL HISTORY: SCREENING former smoker quit 32 years ago smoked 1 ppd x 19 years FINDINGS: CTDLvol: 2.9 DLP: 109.42 Former smoker 32 pack year history. Lungs: No acute pulmonary abnormality. No suspicious nodules. There are vascular calcifications of the aorta. There are scattered multivessel coronary artery calcifications. Lymph nodes: No thoracic lymph there is a small left pre-vascular lymph node measuring 13 mm that is unchanged from prior Mediastinum: Heart size is normal. Pleura/pericardium: No pleural or pericardial effusion. Other: No acute abnormality in the upper abdomen. IMPRESSION: No suspicious pulmonary nodule or mass. Lung RADS: 1 Recommendation: Recommend repeat low-dose chest CT in 1 year. Reviewed, Interpreted and Dictated by Justin Cooley MD Transcribed by ELOISA Reynolds Authenticated and [facility]
--- OUTSIDE RECORDS SUMMARY | 2025-01-14 08:48 | XMS_ITS | Clinical Summary ---
[facility] Address [address] [place] [address] Care Team Providers Care Hat Trimmer Name Role Phone Yessenia Jaimes Primary Care Provider [phone] Allergies Active Allergy Reactions Criticality Noted Date Comments Ampicillin Rash Low 09/29/2021 Medications hydrOXYzine (ATARAX) 25 MG tablet Take 25 mg by mouth As Needed for Anxiety. 09/11/2019 Active Linzess 145 MCG capsule capsule Take 145 mcg by mouth Daily. 09/09/2021 Active gabapentin (NEURONTIN) 300 MG capsule Take 300 mg by mouth 3 (Three) Times a Day. 09/17/2021 Active sertraline (ZOLOFT) 50 MG tablet Take 50 mg by mouth Every Night. 09/06/2021 Active atorvastatin (LIPITOR) 80 MG tablet Take 80 mg by mouth Daily. 09/06/2021 Active docusate sodium (COLACE) 100 MG capsule Take 2 capsules by mouth 2 (Two) Times a Day. 60 capsule 3 10/08/2021 10:35 AM EDT 10/08/2021 Active polyethylene glycol (MIRALAX) 17 GM/SCOOP powder Mix 17g ( 1 capful) in water and drink by mouth daily. 238 g 10/08/2021 10:35 AM EDT 10/08/2021 Active Active Problems Problem Noted Date Diagnosed Date Pelvic mass 09/29/2021 Family History Medical History Relation Name Comments Breast cancer Maternal Aunt Shante Batista Breast cancer Mother Haritha Murray Relation Name Status Comments Maternal Aunt Shante Batista Mother Haritha Murray Social History Tobacco Use Types Packs/Day Years Used Date Smoking Tobacco: Former Cigarettes 1 18 0 08/29/1974 - 03/15/1992 Smokeless Tobacco: Never Alcohol Use Standard Drinks/Week Comments Yes 4 (1 standard drink = 0.6 oz pur e alcohol) 4 drinks weekly AUDIT-C Answer Date Recorded Q1: How often do you have a drink containing alc ohol? Monthly or less 10/05/2021 Q2: How many drinks containi ng alcohol do you have on a typical day when you are drinking? 1 or 2 10/05/2021 Q3: How often do you have si x or more drinks on one occasion? Never 10/05/2021 PHQ-2 Answer Date Recorded Retired PHQ-9: Brief Depression Severity Measure Score 0 09/29/2021 Abuse Screen Answer Date Recorded Unsafe at Home or Work/School Not on file Feels Threatened by Someone? Not on file 11/2022 Does Anyone Keep You from Co ntacting Others or Doint Things Outside the Home? Not on file 12/19/2022 Physical Sign of Abuse Present Not on file 1 Housing Stability Answer Date Recorded Current Living Arrangements Not on file 11/2022 Potentially Unsafe Housing Conditions Not on leni e 12/19/2022 Family and Community Support Answer Erasto e Recorded Help with Day-to-Day Activities Not on file 12/19/2022 Lonely or Isolated Not on file 12/19/2022 Employment Answer Date Recorded Do you want help finding or keeping work or a duncan b? Not on file 12/19/2022 Disabilities Answer Date Recorded Concentrating, Remembering, or Making Decisions Difficulty Not on file 12/19/2022 Doing Errands Independently Difficulty Not on fi le 12/19/2022 Education Answer Date Recorded Help with school or training? Not on file Preferred Language Not on file 12/19/2022 Comments No Sex and Gender Information Value Date Recorded Sex Assigned at Not on file Legal Sex Female 4:32 PM EDT Gender Identity Not on file Sexual Orientation Not on file Last Filed Vital Signs Vital Sign Reading Time Taken Comments Blood Pressure 114/71 10/28/2021 12:57 PM EDT Pulse 109 10/28/2021 12:57 PM EDT Temperature 36.7 C (98.1 F) 10/08/2021 7:00 AM EDT Respiratory Rate 16 10/28/2021 12:57 PM EDT Oxygen Saturation 98% 10/28/2021 12:57 PM EDT Inhaled Oxygen Concentration - - Weight 62.9 kg (138 lb 9.6 oz) 10/28/2021 12:57 PM EDT Height 165.1 cm (5' 5 ) 10/28/2021 12:57 PM EDT Body Mass Index 23.06 10/28/2021 12:57 PM EDT Plan of Treatment Health Maintenance Due Date Last Done Comments DXA SCAN 1956 TDAP/TD VACCINES (1 - Tdap) 05/21/1975 MAMMOGRAM 1996 COLOGUARD 2001 COLON CANCER SCREENING 5 YEA R SIGMOIDOSCOPY 2001 COLONOSCOPY [address] CANCER SCREENING 2001 CT COLONOGRAPHY 2001 FECAL OCCULT BLOOD TEST 2001 FIT Testing (1 year) 2001 Pneumococcal Vaccine 50+ (1 of 1 - PCV) 2006 ZOSTER VACCINE (2 of 2) 09/14/2021 07/20/2021 ANNUAL PHYSICAL 09/29/2021 HEPATITIS C SCREENING 09/29/2021 INFLUENZA VACCINE 10/11/2024 COVID-19 Vaccine (5 - 2024-2 6 season) 2024 07/20/2021, 02/19/2021, 07/03/2020, Additional history exists Medical Devices Implanted Type Area Ballaster Device Identifier Shelf Expiration Date Model / Serial / Lot Hemost Abs Surgicel Pwdr 3gm - [id number] Implanted:Qty : 1 on 10/05/2021 by Sigrid Schwartz MD at [facility] Implant N/A: Abdomen [employer] [id number] 01/10/2023 [facility] / / [id number] Insurance MEDICARE A & B MEDICAID [id number] Advance Directives * CPR (Attempt to Resuscitate) (Latest Code Status on File) Date Activated Date Inactivated Comments 10/05/2021 3:22 PM 10/08/2021 1:18 PM Question Answer Comments Code Status (Patient has no pulse and is not breathing): CPR (Attempt to Resuscitate) Medical Interventions (Patie nt has pulse or is breathing): Full Support Level Of Support Discussed With: Patient Care Teams Hat Trimmer Relationship Specialty Start Date End Date Yessenia Jaimes PA PCP - General Physician Associate Merchant 09/29/21
--- OUTSIDE RECORDS SUMMARY | 2025-01-14 08:48 | XMS_ITS | Continuity of Care Document ---
Author Organization [place] - [employer] Address [address] [place] [address] Assessment Encounter Date Assessment Date Assessment LastModified by Organization Details LastModified Time 12/26/2024 12/26/2024 Patient presente d to office today for their Medicare Annual Wellness Visit. Education was provided on healthy nutrition, including a diet rich in fruits and vegetables, minimizing simple carbohydrates, salt, and saturated fats. Encouraged regular cardiovascular exercise such as walking at least 30 minutes daily, 5 times per week. Emphasized preventive health measures and educated pt on fall prevention and community-based lifestyle interventions to help reduce health risks and promote healthy living. Not available 12/26/2024 13:21:17 Plan of Treatment Reminders Order Date Submit Date Provider Last Modified By Organization Details Last Modified Time Details Appointments None recorded. Lab CMP, serum or plasma [facility]24 [facility] [address] [place], [address], 11:09:25 CBC w/ auto diff 2024 025 [place] [facility] [place], [address], 11:09:24 vitamin D, 25-hydroxy , total, serum 2024 025 [place] [facility], [facility] [place], [address], 11:09:28 TSH, ultra-sens itive, serum 2024 [place] [facility] ([place]), [address], [place], [address], 11:09:27 lipid panel, serum 2024 [place] [facility] ([place]), [address], [place], [address], 11:09:26 Referral None recorded. Procedures None recorded. Surgeries None recorded. Imaging bone density [address] (Scheduling), [address], [place], [address], 09:58:15 LDCT, chest, for lung cancer screening [address] (Scheduling), [address], [place], [address], 09:58:43 Medication Orders None recorded. Patient TargetsNo targets recorded. Patient Instructions Encounter Date Encounter Id Patient Instructions Last Modified By Organization Details Last Modified Time 12/26/2024 [id number] high cholesterol : care instructions [email or web address] Not available 12/26/2024 14:51:34 Discussed and explained advance directives such as standard forms to the . Face to face discussion lasted for a duration of ___ minutes. Not available 12/26/2024 13:21:17 Reason for Referral None Reported. Results Created Date Observation Date Name Description Value Unit Range Abnormal Flag Note LastModifiedBy Organization Detail LastModifiedTime 12/27/1912/27/2024 CBC WITH DIFFE RENTI AL/PL ATELE T WBC 7.5 x10e3 /uL 3.4-10 .8 normal Not Available [facility] ([facility]) [address] [facility], [place], [address], 12/27/2024 11:09:24 12/27/1912/27/2024 CBC WITH DIFFE RENTI AL/PL ATELE T RBC 4.63 x10e6 /uL 3.77-5 .28 normal Not Available [facility] ([facility]) [address] [place], [address], 12/27/2024 11:09:24 12/27/19 25 12/27/2024 CBC WITH DIFFE RENTI AL/PL ATELE T hemoglobin 13.8 g/dL 11.1-1 5.9 normal Not Available [facility] ([facility]) [address] [place], [address], 12/27/2024 11:09:24 12/27/1912/27/2024 CBC WITH DIFFE RENTI AL/PL ATELE T hematocrit 41.9 % 34.0-4 6.6 normal Not Available [facility] ([facility]) [address] [place], [address], 12/27/2024 11:09:24 12/27/19 25 12/27/2024 CBC WITH DIFFE RENTI AL/PL ATELE T MCV 91 fL 79-97 normal Not Available [facility] ([facility]) [address] [place], [address], 12/27/2024 11:09:24 12/27/19 25 12/27/2024 CBC WITH DIFFE RENTI AL/PL ATELE T MCH 29.8 pg 26.6-3 3.0 normal Not Available [facility] ([facility]) [address] [place], [address], 12/27/2024 11:09:24 12/27/19 25 12/27/2024 CBC WITH DIFFE RENTI AL/PL ATELE T MCHC 32.9 g/dL 31.5-3 5.7 normal Not Available [facility] ([facility]) [address] [place], [address], 12/27/2024 11:09:24 10/1612/27/2024 CBC WITH DIFFE RENTI AL/PL ATELE T RDW 13.1 % 11.7-1 5.4 Not Available [facility] ([facility]) [address] [facility], [place], [address], 12/27/2024 11:09:24 12/27/19 25 12/27/2024 CBC WITH DIFFE RENTI AL/PL ATELE T platelets 285 x10e3 /uL 150-45 0 normal Not Available [facility] ([facility]) [address] [facility], [place], [address], 12/27/2024 11:09:24 12/27/1912/27/2024 CBC WITH DIFFE RENTI AL/PL ATELE T neutrophils 57 % not estab. normal Not Available [facility] ([facility]) [address] [facility], [place], [address], 12/27/2024 11:09:24 12/27/19 25 12/27/2024 CBC WITH DIFFE RENTI AL/PL ATELE T lymphs 32 % not estab. normal Not Available [facility] ([facility]) [address] [facility], [place], [address], 12/27/2024 11:09:24 12/27/19 25 12/27/2024 CBC WITH DIFFE RENTI AL/PL ATELE T monocytes 7 % not estab. normal Not Available [facility] ([facility]) [address] [facility], [place], [address], 12/27/2024 11:09:24 12/27/19 25 12/27/2024 CBC WITH DIFFE RENTI AL/PL ATELE T eos 3 % not estab. normal Not Available [facility] ([facility]) [address] [facility], [place], [address], 12/27/2024 11:09:24 12/27/19 25 12/27/2024 CBC WITH DIFFE RENTI AL/PL ATELE T basos 1 % not estab. 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 0 normal Not Available [facility] ([facility]) [address] [facility], [place], [address], 12/27/2024 11:09:24 12/27/19 25 12/27/2024 CBC WITH DIFFE RENTI AL/PL ATELE T lymphs (absolute) 2.4 x10e3 /uL 0.7-3. 1 normal Not Available [facility] ([facility]) [address] [facility], [place], [address], 12/27/2024 11:09:24 12/27/19 25 12/27/2024 CBC WITH DIFFE RENTI AL/PL ATELE T monocytes(ab solute) 0.5 x10e3 /uL 0.1-0. 9 normal Not Available [facility] ([facility]) [address] [facility], [place], [address], 12/27/2024 11:09:24 12/27/19 25 12/27/2024 CBC WITH DIFFE RENTI AL/PL ATELE T eos (absolute) 0.2 x10e3 /uL 0.0-0. 4 normal Not Available [facility] ([facility]) [address] [place], [address], 12/27/2024 11:09:24 12/27/19 25 12/27/2024 CBC WITH DIFFE RENTI AL/PL ATELE T baso (absolute) 0.0 x10e3 /uL 0.0-0. 2 normal Not Available [facility] ([facility]) [address] [facility], [place], [address], 12/27/2024 11:09:24 12/27/19 25 12/27/2024 CBC WITH DIFFE RENTI AL/PL ATELE T immature granulocytes 0 % not estab. Not Available [facility] ([facility]) [address] [facility], [place], [address], 12/27/2024 11:09:24 12/27/19 25 12/27/2024 CBC WITH DIFFE RENTI AL/PL ATELE T immature grans (abs) 0.0 x10e3 /uL 0.0-0. 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 METAB OLIC PANEL (14) glucose 88 mg/dL 70-99 normal Not Available [facility] ([facility]) [address] [place], [address], 12/27/2024 11:09:25 12/27/19 25 12/27/2024 COMP. METAB OLIC PANEL (14) BUN 25 mg/dL 8-27 normal Not Available [facility] ([facility]) [address] [facility] [place], [address], 12/27/2024 11:09:25 12/27/19 25 12/27/2024 COMP. METAB OLIC PANEL (14) creatinine 0.78 mg/dL 0.57-1 .00 normal Not Available [facility] ([facility]) [address] [facility] [place], [address], 12/27/2024 11:09:25 12/27/19 25 12/27/2024 COMP. METAB OLIC PANEL (14) eGFR 83 mL/mi n/1.7 3 >59 normal Not Available [facility] ([facility]) [address] [facility] [place], [address], 12/27/2024 11:09:25 12/27/19 25 12/27/2024 COMP. METAB OLIC PANEL (14) BUN/creatini ne ratio 32 12-28 above high normal Not Available [facility] ([facility]) [address] [facility] [place], [address], 12/27/2024 11:09:25 12/27/19 25 12/27/2024 COMP. METAB OLIC PANEL (14) sodium 141 mmol/ L 134-14 4 normal Not Available [facility] ([facility]) [address] [facility] [place], [address], 12/27/2024 11:09:25 12/27/19 25 12/27/2024 COMP. METAB OLIC PANEL (14) potassium 4.6 mmol/ L 3.5-5. 2 normal Not Available [facility] ([facility]) [address] [facility] [place], [address], 12/27/2024 11:09:25 12/27/19 25 12/27/2024 COMP. METAB OLIC PANEL (14) chloride 99 mmol/ L 96-106 normal Not Available [facility] ([facility]) [address] [facility] [place], [address], 12/27/2024 11:09:25 12/27/19 25 12/27/2024 COMP. METAB OLIC PANEL (14) carbon dioxide, total 22 mmol/ L 20-29 normal Not Available [facility] ([facility]) [address] [facility] [place], [address], 12/27/2024 11:09:25 12/27/19 25 12/27/2024 COMP. METAB OLIC PANEL (14) calcium 9.7 mg/dL 8.7-10 .3 normal Not Available [facility] ([facility]) [address] [facility] [place], [address], 12/27/2024 11:09:25 12/27/19 25 12/27/2024 COMP. METAB OLIC PANEL (14) protein, total 7.2 g/dL 6.0-8. 5 normal Not Available [facility] ([facility]) [address] [facility] [place], [address], 12/27/2024 11:09:25 12/27/19 25 12/27/2024 COMP. METAB OLIC PANEL (14) albumin 4.7 g/dL 3.9-4. 9 normal Not Available [facility] ([facility]) [address] [facility] [place], [address], 12/27/2024 11:09:25 12/27/19 25 12/27/2024 COMP. METAB OLIC PANEL (14) globulin, total 2.5 g/dL 1.5-4. 5 Not Available [facility] ([facility]) [address] [facility] [place], [address], 12/27/2024 11:09:25 12/27/19 25 12/27/2024 COMP. METAB OLIC PANEL (14) bilirubin, total 0.4 mg/dL 0.0-1. 2 normal Not Available [facility] ([facility]) [address] [facility] [place], [address], 12/27/2024 11:09:25 12/27/19 25 12/27/2024 COMP. METAB OLIC PANEL (14) alkaline phosphatase 98 IU/L 49-135 normal Not Available [facility] ([facility]) [address] [place], [address], 12/27/2024 11:09:25 12/27/19 25 12/27/2024 COMP. METAB OLIC PANEL (14) AST (SGOT) 29 IU/L 0-40 normal Not Available [facility] ([facility]) [address] [place], [address], 12/27/2024 11:09:25 12/27/19 25 12/27/2024 COMP. METAB OLIC PANEL (14) ALT (SGPT) 28 IU/L 0-32 normal Not Available [facility] ([facility]) [address] [place], [address], 12/27/2024 11:09:25 12/27/19 25 12/27/2024 LIPID PANEL cholesterol, total 197 mg/dL 100-19 9 normal Not Available [facility] ([facility]) [address] [place], [address], 12/27/2024 11:09:26 12/27/19 25 12/27/2024 LIPID PANEL triglyceride s 330 mg/dL 0-149 above high normal Not Available [facility] ([facility]) [address] [place], [address], 12/27/2024 11:09:26 12/27/19 25 12/27/2024 LIPID PANEL HDL cholesterol 48 mg/dL >39 normal Not Available [facility]) [address] [place], [address], 12/27/2024 11:09:26 12/27/19 25 12/27/2024 LIPID PANEL VLDL cholesterol jesus 55 mg/dL 5-40 above high normal Not Available [facility] ([facility]) [address] [facility], [place], [address], 12/27/2024 11:09:26 12/27/1912/27/2024 LIPID PANEL LDL chol calc ([facility]) 94 mg/dL 0-99 Not Available [facility]) [address] [facility], [place], [address], 12/27/2024 11:09:26 12/27/1912/27/2024 LIPID PANEL LDL calc comment: 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 The Endoc rine Socie ty went on to furth er defin e vitam in D insuf ficie ncy as a level betwe en 21 and 29 ng/mL (2). 1. IOM (Inst itute of Medic ine). 2010. Dieta ry refer ence vicente es for calci um and D. Judy hubbard DC: The Natio nal [facility] [facility] Press . 2. Aaron samuels MF, Binsofi ey [place], Deysi off-F errar i LEVINE, et al. Evalu ation , treat ment, and preve ntion of vitam in D defic iency : an Endoc rine Socie ty clini jesus pract ice guide line. JCEM. 2010; 96(7) :1911 -30. Not Available [facility] ([facility]) [address], [place], [address], 12/27/2024 11:09:28 Result Notes None recorded. Problems Name Problem SNOMED Code Status Onset Date Resolution Date Notes Provider Name and Address Organization Details Recorded Time Acute urinary tract infection 191133443 Active 2024 ELOISA Lopez [address] [place] [address], [address], [email or web address] 10:15:52 Hyperlipide gera 87495490 Active 2024 ELOISA Lopez [address] [place] [address], [address]49[address] 8, [employer] 10:16:04 Osteoarthri tis 495696745 Active 2024 ELOISA Lopez [address] [place] [address], [address] 8, [employer] 10:16:10 Pain of elbow region 20903764 Active 2024 ELOISA Lopez [address] [place] [address], [address] 8, [employer] 10:09:08 Mild dehydration 1640149714475 Active 2024 ELOISA Lopez [address] [place] [address], [address] 8, [employer] 13:17:05 Problem Notes None recorded. Procedures Surgical History Date Name Laterality Status Provider Name and Address Organization Details Recorded Time 03/27/19 25 Most Recent Mammogram completed [employer] 05/14/2024 09:44:35 03/15/19 25 Shave Biopsy completed ELOISA Lopez [address] [place] [address], [address], [employer] 03/15/2024 11:26:58 Back Surgery completed [employer] 03/15/2024 09:44:33 Hysterectomy completed [facility] 03/15/2024 09:44:33 Other completed [facility] [facility] [employer] 03/15/2024 09:55:06 Imaging Results None recorded. Procedure Notes None recorded. Medical Equipment None Reported. Allergies Allergen ID Allergen Name Allergen Category Reaction Reaction Severity Criticality Documentation Date Start Date Code Code System Note Provider Name and Address Organization Details Recorded Time 24510 Product containin g penicilli n (product) medicatio n rash Not available Not available 03/15/2024 92023 8001 SNOMED [employer], [employer] 09:50:39 77186 ampicilli n medicatio n Not available Not available Not available 03/15/2024 733 RxNorm [employer], [employer] 09:50:36 Medications Name Sig Start Date Stop Date Status Note LastModified by Organization Details LastModified Time celecoxib 200 mg capsule TAKE 1 CAPSULE BY MOUTH ONCE DAILY active Not Available Not Available No t Available atorvastati n 80 mg tablet TAKE 1 TABLET BY MOUTH ONCE DAILY AT BEDTIME active Not Available Not Available No t Available Medrol (Sebastián) 4 mg tablets in a dose pack Take 1 dose pk by oral route as directed for 6 days. 10/24 completed Not Available Not Available Not Available gabapentin 300 mg capsule TAKE 1 CAPSULE BY MOUTH THREE TIMES DAILY 03/12 completed Not Available Not Available Not Available levofloxaci n 500 mg tablet TAKE 1 TABLET BY MOUTH EVERY 24 HOURS FOR 7 DAYS 10/11 completed Not Available Not Available Not Available sertraline 50 mg tablet TAKE 1 TABLET BY MOUTH ONCE DAILY FOR DEPRESSIO N active Not Available Not Available No t Available amoxicillin 875 mg-potassiu m clavulanate 125 mg tablet TAKE 1 TABLET BY MOUTH TWICE DAILY FOR 10 DAYS 05/14 completed Not Available Not Available Not Available hydroxyzine pamoate 25 mg capsule TAKE 1 CAPSULE BY MOUTH EVERY DAY AT BEDTIME active Not Available Not Available No t Available cyclobenzap rine 5 mg tablet TAKE 1 TABLET BY MOUTH TWICE DAILY NEEDED FOR MUSCLE SPASM 03/12 completed Not Available Not Available Not Available PreserVisio n AREDS 2 tablets daily active Not Available Not Available No t Available Vitamin D3 50 mcg (2,000 unit) tablet Take 1 tablet every day by oral route. active Not Available Not Available No t Available Glucosamine -Chondroiti n 3X Triple Strength 750 mg-600 mg tablet Take 2 tablets every day by oral route. active Not Available Not Available No t Available Multivitami n Women 50 Plus once daily active Not Available Not Available No t Available Voltaren Arthritis Pain 1 % topical gel APPLY 2 GRAMS TO THE AFFECTED AREA(S) BY TOPICAL ROUTE 4 TIMES PER DAY 2024 active Not Available Not Available Not Avai lable potassium citrate (replacemen t) 99 mg capsule Take 3 capsules every day by oral route. active Not Available Not Available No t Available Vitals Date Recorded Body height Body mass index (BMI) Body weight Body temperature Heart rate Oxygen saturation Oxygen saturation in Arterial blood by Pulse oximetry Systolic And Diastolic Systolic And Diastolic Provider Name and Address Organization Details Last Updated DateTime 167.64 cm 24.5 kg/m2 00551.0 4 g 98 [degF] 92 /min 95 % 95 % 151/84 mm[Hg] 147/90 mm[Hg] Kaylin Piña [employer], [employer] 10:36:50 Social History Question Answer Notes LastModified by Organizat ion Details LastModified Time Tobacco Smoking Status Former Smoker Rasheeda langley, [employer], [employer] 03/15/2024 09:44:32 Do You Have An Advance Directive? No Information not available 03/15/2024 Is Your Home Air Conditioned? Yes Information not available 03/15/2024 If You Are , What Was Your Level Of Alcohol Consumption Prior To ? None Information not available 03/15/2024 How Many Years Have You Consumed Alcohol? 6 Information not available 03/15/2024 Do You Wear A Helmet When Biking? No Information not available 03/15/2024 Are You Blind Or Do You Have Difficulty Seeing? Yes Information not available 03/15/2024 What Is Your Level Of Caffeine Consumption? Moderate Information not available 03/15/2024 Are You A Caregiver? No [email or web address] Information not available 12/26/2024 What Type Of Cigar Wrapper Do You Use? None Information not available 03/15/2024 Have You Been To An Area Known To Be High Risk For COVID-19? No Information not available 03/15/2024 Are You Deaf Or Do You Have Serious Difficulty Hearing? No Information not available 03/15/2024 What Type Of Diet Are You Following? REGULAR Information not available 03/15/2024 What Is The Highest Grade Or Level Of School You Have Completed Or The Highest Degree You Have Received? [id number] [email or web address] Information not available 12/26/2024 How Many Days Of Moderate To Strenuous Exercise, Like A Brisk Walk, Did You Do In The Last 7 Days? 2 Information not available 03/15/2024 Have There Been Any Changes To Your Family Or Social Situation? No Information no t available 03/15/2024 When Did You Quit Smoking? 16+[email or web address] cigarette Information not available 03/15/2024 Are There Any Guns Present In Your Home? Yes Information not available 03/15/2024 Which Of Your Hands Is Dominant? Right Information not available 03/15/2024 Do You Engage In Moderate/heavy Exercise (e.g. Brisk Walk, Jogging, Strength Training, Etc)? No [email or web address] Information not available 12/26/2024 What Is Your Home Situation? Other Information not available 03/15/2024 How Many Times In The Past Year Have You Used An Illegal Drug Or Used A Prescription Medication For Nonmedical Reasons? 0 [email or web address] Information not available 12/26/2024 Where Do You Live? Apartment Information not available 12/26/2024 Do You Have A Medical Power Of Legal Librarian? No Information not available 03/15/2024 What Was The Date Of Your Most Recent Tobacco Screening? 12/26/2024 [email or web address] Information not available 12/26/2024 Have You Ever Been Counseled For Unhealthy Alcohol Use? No [email or web address] Information not available 12/26/2024 Do You Have Any Pets? Yes Information not available 03/15/2024 What Is Your Relationship Status? Information not available 03/15/2024 Have You Repeated Any Grades? Yes Information not available 03/15/2024 Do You Wear A Seatbelt When Driving Or As A Passenger? Yes [email or web address] Information not available 12/26/2024 Do You Use Your Seat Belt Or Car Seat Routinely? Yes Information not available 03/15/2024 Are You Sexually Active? No Information not available 03/15/2024 Do You Have Any Siblings? Yes Information not available 03/15/2024 Do You Have Smoke And Carbon Monoxide Detectors In Your Home? No Information not available 03/15/2024 At What Age Did You Start Smoking Tobacco? 18 Information not available 03/15/2024 Are You Passively Exposed To Smoke? Yes Information no t available 03/15/2024 Are There Any Smokers In Your House? No Information not available 03/15/2024 How Much Tobacco Do You Smoke? No Information not available 03/15/2024 Do You Participate In Social Media? Yes Information not available 03/15/2024 What Types Of Sporting Activities Do You Participate In? None [email or web address] Information not available 12/26/2024 Do You Use Sunscreen Routinely? No Information not available 03/15/2024 Has Tobacco Cessation Counseling Been Provided? No Information not available 03/15/2024 How Many Years Have You Smoked Tobacco? 19 Information not available 03/15/2024 Have You Recently Traveled Abroad? No Information not available 03/15/2024 Do You Have Difficulty Walking Or Climbing Stairs? No Information not available 03/15/2024 Are You Currently In School? No Information not available 03/15/2024 What Contraceptive Method Was Reported At Start Of This Visit? Female Sterilization Information not available 05/14/2024 Do You Feel Safe In Your Home? Yes Information not available 12/26/2024 Do You Have Any Dietary Restrictions? No Information not available 03/15/2024 How Many Days In The Past Year Have You Consumed 4 Or More Drinks? 2 Information no t available 03/15/2024 Sex: Female Functional Status Question Answer Note LastModified by [employer] Details LastModified Time How many times per week do you consume alcohol? 1-2 times per week [email or web address] Information not available 12/26/2024 Do you use any illicit or recreational drugs? No Information not available 03/15/2024 Do you feel safe in your relationship? Yes [email or web address] Information not available 12/26/2024 Do you or have you ever used any other forms of tobacco or nicotine? No Information not available 03/15/2024 What is your level of alcohol consumption? Occasional Information not available 03/15/2024 Are you currently employed? No Information not available 03/15/2024 Do you have transportation difficulties? No Information not available 03/15/2024 Are you able to walk independently without assistance or assistive devices? [email or web address] Information not available 03/15/2024 Do you have difficulty doing errands alone? No Information not available 03/15/2024 Are you able to care for yourself independently? Yes Information not available 03/15/2024 Do you have difficulty dressing, bathing, grooming, or toileting? No Information not available 03/15/2024 What is your exercise level? Moderate Information not available 03/15/2024 Mental Status Question Answer Note LastModified by [employer] Details LastModified Time Do you feel stressed (tense, restless, nervous, or anxious, or unable to sleep at night)? [id number] Information not available 03/15/2024 Do you have difficulty concentrating, remembering or making decisions? No Information no t available 03/15/2024 Are you or have you been involved with bullying? No Information not available 03/15/2024 Family History Relationship Description Onset Age of this Age Resolved Age Notes LastModified by Organization Details LastModified Time Mother Malignant neoplasm of breast Not available 2024 09:44:31 Unspecified Relation Malignant neoplasm of breast Not available 2024 09:44:31 Medical History Condition Response Coronary Artery Disease N Other N Gout N Kidney Stones N Blood Diseases N Hyperthyroidism N Breast Cancer N Blood Transfusion N Emergency room visit since last appointm ent. N Hypothyroidism N Lung Disease N COPD N Dermatologic Disorders N Depression N Defects or Inherited Disease N Developmental or Behavioral Disorders N Breast Problem N Difficulty Swallowing N Anesthesia Complications N History of STI N Meniere's disease N Anxiety Disorder Y Muscle, Joint, or Bone Problems N Autoimmune disease N Vision or Eye Problems Y Arthritis N Polyps N Infertility N Mental Disorder N Congenital Anomalies N Acid Reflux (GERD) N Cancer N Stroke N Neurologic/Epilepsy N Endometriosis N Bladder or Kidney Problems N High Cholesterol Y Liver Disease N Psychiatric/Mental Health Condition N Organ Transplant N Dialysis N Fibromyalgia N Schizophrenia N Headaches N Kidney Disease N Allergies/Hayfever N Heart Problems N Ear or Hearing Problems N Hospitalizations N Learning Disorder N Artificial Joints N Thyroid Problems N GI Problems N Acne N ADD/ADHD N Eating Disorder N Anemia N Constipation N Mental Illness N Ovarian Cancer N Diabetes N Bedwetting N Hepatitis/Liver Disease N Tuberculosis N Eczema N Diverticulitis N Abuse/Domestic Violence N Asthma N Trauma/Violence N Substance Abuse N Amnesia/Cognitive Decline N Reflux/GERD N Depression/ depression N Hepatitis N Heart Disease N Pulmonary Embolism N Tourette Syndrome N Pre-Eclampsia N Hypertension N Chronic Ear Infections N Osteoporosis N Chicken Pox N Autism Spectrum Disorder (ASD) N Thrombophilias N Gynecological History Statement/Question Response Sexually Active? N Menses Monthly N HPV Vaccine N Date of Last Pap Smear Current Control Method Hysterectom y Most Recent Mammogram 03/27/2024 Age at First Child 18 Obstetrics History GPAL:G 2 P 1 0 1 1 Type Value Multiple Births 0 Full Term 1 Induced 0 Spontaneous 0 Premature 0 Living 1 Ectopics 1 Total 2 Immunizations Vaccine Type Date Status Note Provider Nam e and Address Organization Details Recorded Time Pneumococcal conjugate PCV21, polysaccharide JVZ104 conjugate, PF 5 completed Rasheeda Vice null, [employer], [employer] 12/26/2024 11:37:57 Influenza, high-dose, trivalent, PF 5 completed Rasheeda Vice null, [employer], [employer] 12/26/2024 11:38:41 COVID-19, mRNA, LNP-S, PF, joss-sucrose, 30 mcg/0.3 mL 5 completed Rasheeda Vice null, [employer], [employer] 12/26/2024 11:40:07 Tdap 5 completed Rasheeda Vice null, [employer] [employer] 12/26/2024 11:40:59 Influenza, split virus, quadrivalent, preservative 9 completed Rasheeda Vice null, [employer] [employer] 05/14/2024 09:39:19 Influenza, adjuvanted, trivalent, PF 4 completed Rasheeda Vice null, [employer] [employer] 05/14/2024 09:39:19 zoster recombinant 2 completed Rasheeda Vice null, [employer] [employer] 05/14/2024 09:39:19 zoster recombinant 2 completed Rasheeda Vice null, [employer] [employer] 05/14/2024 09:39:19 Influenza, high-dose, quadrivalent, PF 2 completed Rasheeda Vice null, [employer] [employer] 05/14/2024 09:39:19 Influenza, high-dose, quadrivalent, PF 3 completed Rasheeda Vice null, [employer] [employer] 05/14/2024 09:39:19 COVID-19, mRNA, LNP-S, PF, 30 mcg/0.3 mL dose 1 completed Rasheeda Vice null, [employer] [employer] 05/14/2024 09:39:19 COVID-19, mRNA, LNP-S, PF, 30 mcg/0.3 mL dose 1 completed Rasheeda Vice null, [employer] [employer] 05/14/2024 09:39:19 COVID-19, mRNA, LNP-S, PF, 30 mcg/0.3 mL dose 1 completed Rasheeda Vice null, [employer] [employer] 05/14/2024 09:39:19 COVID-19, mRNA, LNP-S, PF, 30 mcg/0.3 mL dose, joss-sucrose 2 completed Rasheeda Vice null, [employer] [employer] 05/14/2024 09:39:19 COVID-19, mRNA, LNP-S, bivalent, PF, 50 mcg/0.5 mL or 25mcg/0.25 mL dose 2 completed Rasheeda Vice null, [employer] [employer] 05/14/2024 09:39:19 RSV, recombinant, protein subunit RSVpreF, adjuvant reconstituted, 0.5 mL, PF 3 completed Rasheeda Vice null, [employer] [employer] 05/14/2024 09:39:19 COVID-19, mRNA, LNP-S, PF, joss-sucrose, 30 mcg/0.3 mL 4 completed Rasheeda Vice null, [employer] [employer] 05/14/2024 09:39:19 COVID-19, mRNA, LNP-S, PF, 50 mcg/0.5 mL 3 completed Rasheeda Vice null, [employer] [employer] 05/14/2024 09:39:19 Influenza, split virus, quadrivalent, PF 0 completed Rasheeda Vice null, [employer] [employer] 05/14/2024 09:39:19 Past Encounters Encounter ID Performer Location Encounter Start Date Encounter Closed Date Diagnosis/Indication Diagnosis SNOMED-CT Code Diagnosis ICD10 Code Diagnosis IMO Codes Diagnosis Note [id number] ELOISA Lopez [facility] [address] [place] [address] [id number] 12/26/2024 10:28:59 12/26/2024 11:35:01 Requires vaccination against Streptococcus pneumoniae 1532851415 Z23 194302 Requires i nfluenza virus vaccination 333923015 Z23 863764 Vaccination needed 46204 79821 70179 Z23 9317282327 Requires d iphtheria, tetanus and pertussis vaccination 382771325 Z23 913389 Screening for osteoporosis 629068345 Z13.820 Screening for malignant neoplasm of lung 526319369 Z12.2 [id number] 20 year pack history Hyperlipidemia 61240947 E78.5 [id number] History an d physical examination, annual for health maintenance 19512547 Z00.00 [id number] Health Concerns Section Related Observation LastModified by Organization Detai ls LastModified Time None Recorded Concern Status LastModified by Organization Details LastModified Time None Recorded Payers Encounter Date Sequence Insurance Name Policy Number Policy [place] Covered Member ID [place] Member ID Guarantor Name 12/26/2024 1 [employer] (MEDICARE REPLACEMENT/A DVANTAGE - PPO) sEtephania Fox [id number] Estephania Broweriott Notes Date Note Type Note Provider Name and Address Organization Details Recorded Time 12/26/2024 text/html Medicare Annual Wellness VisitReported by PatientSocial/Behavi oral HistoryFor diet and nutrition, patient reportshealthy diet. For fracture risk, patient reportsno history of fractures. For physical activity, patient reportsexercises on a regular basis,recent increase in physical activity, andgood physical condition.Mental Status:For depression risk, patient reportsnever feels sad, empty, or tearful,no agitation,no loss of energy, andno history of depression. For orientation, patient reportsno disorientation to time,no disorientation to date, andno disorientation to place. For concentration and memory, patient reportsno decreased concentrating ability,no memory lapses or loss, anddoes not forget words. For speech/motor difficulties, patient reportsno speech difficulties.ROS as noted in the HPI Patient presents for Medicare Annual Wellness Exam ELOISA Lopez [address] [place] [address], [phone], [facility] 12/26/2024 17:43:31 OBGyn Episode No OBEpisode recorded.
--- OUTSIDE RECORDS SUMMARY | 2025-01-14 08:48 | XMS_ITS | Data Portability ---
Author Organization [facility]., [facility] Address [address] [place] [address] Assessment Encounter Date Assessment Date Assessment LastModified [...] Lab CMP, serum or plasma 2024 025 [facility] [address] [place], [address], 11:09:25 CBC w/ auto diff 2024 025 [place]), [address] [place], [address], 11:09:24 vitamin D, 25-hydroxy , total, serum 2024 025 [facility], [address] [place], [address], 11:09:28 TSH, ultra-sens itive, serum 2024 025 [facility] [address] [facility], [place], [address], 11:09:27 lipid panel, serum 2024 025 [facility] [address] [place], [address], 11:09:26 urinalysis , dipstick [email or web address] [place] [address], [address] [facility], [place], [address], 10:27:26 culture, urine 2024 025 [facility] ([place]), [address] [place], [address], 23:07:13 lipid panel, serum 2024 025 [facility] [address] [facility], [place], [address], 5 23:07:10 rf (rheumatoi d factor), serum 2024 025 [facility] ([place]), [address] [place], [address], 5 23:07:11 C reactive protein, QN, serum or plasma 2024 025 [facility] [address] [facility], [place], [address], 5 23:07:13 ESR (erythrocy te sedimentat ion rate), blood 2024 025 [facility] [address] [place], [address], 03/06/202 5 23:07:13 JESUS (antinucle ar antibodies ) screen, serum 2024 025 [facility] ([place]), [address] [place], [address], 5 23:07:12 ccp (cyclic citrullina ulysses peptide) iga+igg, serum 2024 025 [facility]), [address] [place], [address], 5 23:07:12 CMP, serum or plasma 2024 025 [facility]), [address] [place], [address], 5 23:07:10 CBC w/ auto diff 2024 025 [facility] ([place] [address] [place], [address], 5 23:07:09 vitamin D, 25-hydroxy , total, serum 2024 025 [facility]), [address] [place], [address], 5 23:07:11 TSH, ultra-sens itive, serum 2024 025 [facility]), [address] [place], [address], 5 23:07:11 Hepatitis C IgG Ab, qual, serum 2024 025 [facility]), [address] [place], [address], 5 23:07:10 rapid SARS CoV 2 Ag, QL, IA, upper respirator y specimen [address], [address] [facility], [place], [address], 5 10:27:26 rapid flu (A+B) [address], [address] [facility], [place], [address], 5 10:27:26 HIV 1 + 2, meaningful use set 2024 025 [place] ([place]), [address] [facility], [place], [address], 5 23:07:12 surgical pathology study 2024 025 PRAIRIE [facility] ROCHER [facility] ([place]), [address] [facility], [place], [address], 5 12:07:15 Referral None recorded. Procedures None recorded. Surgeries None recorded. Imaging bone density [address] (Scheduling), [address], [place], [address], 09:58:15 LDCT, chest, for lung cancer screening [address] (Scheduling), [address], [place], [address], 09:58:43 MAMMO, screening, digital, bilateral - first available appt 2024 025 [facility] (Scheduling), [address], [place], [address], 5 09:55:20 Medication Orders Medrol (Sebastián) 4 mg tablets in a dose pack 2024 025 [facility], [address] [facility], [place], [address], 5 05:01:52 Voltaren Arthritis Pain 1 % topical gel [address] [facility], [address], [address], 10:09:48 Celebrex 200 mg capsule [address] [facility], [address], [address], 10:24:01 levofloxac in 500 mg tablet [address], [address], [address], 09:35:28 atorvastat in 80 mg tablet [address] [facility], [address], [address], 10:24:01 Patient TargetsNo targets recorded. Patient Instructions Encounter Date Encounter Id Patient Instructions Last Modified By Organization Details Last Modified Time 03/15/2024 [id number] mammogram: about this test [email or web address] Not available 03/15/2024 11:01:04 05/14/2024 [id number] arthritis: care instructions Not available 05/14/2024 10:24:01 high cholesterol : care instructions Not available 05/14/2024 10:24:01 HIV testing: car e instructions [email or web address] Not available 05/14/2024 10:48:51 12/26/2024 [id number] high cholesterol : care instructions [email or web address] Not available 12/26/2024 14:51:34 Discussed and explained advance directives such as standard forms to the . Face to face discussion lasted for a duration of ___ minutes. Not available 12/26/2024 13:21:17 Reason for Referral None Reported. Results Created Date Observation Date Name Description Value Unit Range Abnormal Flag Note LastModifiedBy Organization Detail LastModifiedTime 03/15/1903/20/2024 PATHO LOGY REPOR T . Commerika t Mater ial submi tted: . nose - NOSE SKIN LESIO N Not Available [facility] ([facility]) [address] [place], [address], 03/20/2024 12:07:15 03/15/1903/20/2024 PATHO LOGY REPOR T . Commerika t Diagn osis: IRRIT ATED VERRU CA VULGA RIS. SMI 03/20 0844 Local Not Available [facility] ([facility]) [address] [facility], [place], [address], 03/20/2024 12:07:15 03/15/1903/20/2024 PATHO LOGY REPOR T . Commerika t Ekta palacios d: . Tyler MD, Linneus topat holog ist Not Available [facility] ([facility]) [address] [place], [address], 03/20/2024 12:07:15 03/15/1903/20/2024 PATHO LOGY REPOR T . Commerika t Gross descr iptio n: . 1 Conta iner, forma verito-f illed , label ed with patie nt ident ifica tion. NOSE SKIN LESIO N: 1 SHAVE BIOPS Y OF MARS SKIN MEASU RING 0.4 X 0.3 X 0.3 CM. ON THE SURFA CE IS A VERRU COID MARS-W MAXX 0.4 CM LESIO N. THE LESIO N APPEA RS TO INVOL VE THE SHEREE N. THE SURGI JESUS SHEREE N IS INKED BLUE. IT IS SUBMI TTED ENTIR JERE IN CASSE TTE(S ) A1. VICKI/K YE 03/18 1113 Local Not Available [facility] ([facility]) [address] [facility], [place], [address], 03/20/2024 12:07:15 03/15/19 25 03/20/2024 PATHO LOGY REPOR T . Commen t Patho logis t provi ded ICD-1 0: B07.8 Not Available [facility] ([facility]) [address] [facility], [place], [address], 03/20/2024 12:07:15 03/15/1903/20/2024 PATHO LOGY PEDRITO Guzman Commen t CPT . 80255 1 Not Available [facility] ([facility]) [address] [facility], [place], [address], 03/20/2024 12:07:15 05/15/19 25 05/15/2024 CBC WITH DIFFE RENTI AL/PL ATELE T WBC 8.7 x10e3 /uL 3.4-10 .8 normal Not Available [facility] ([facility]) [address] [facility], [place], [address], 05/16/2024 23:07:09 05/15/19 25 05/15/2024 CBC WITH DIFFE RENTI AL/PL ATELE T RBC 4.75 x10e6 /uL 3.77-5 .28 normal Not Available [facility] ([facility]) [address] [facility], [place], [address], 05/16/2024 23:07:09 05/15/19 25 05/15/2024 CBC WITH DIFFE RENTI AL/PL ATELE T hemoglobin 12.9 g/dL 11.1-1 5.9 normal Not Available [facility] ([facility]) [address] [facility], [place], [address], 05/16/2024 23:07:09 05/15/19 25 05/15/2024 CBC WITH DIFFE RENTI AL/PL ATELE T hematocrit 41.2 % 34.0-4 6.6 normal Not Available [facility] ([facility]) [address] [facility], [place], [address], 05/16/2024 23:07:09 05/15/19 25 05/15/2024 CBC WITH DIFFE RENTI AL/PL ATELE T MCV 87 fL 79-97 normal Not Available [facility] ([facility]) [address] [facility], [place], [address], 05/16/2024 23:07:09 05/15/19 25 05/15/2024 CBC WITH DIFFE RENTI AL/PL ATELE T MCH 27.2 pg 26.6-3 3.0 normal Not Available [facility] ([facility]) [address] [facility], [place], [address], 05/16/2024 23:07:09 05/15/19 25 05/15/2024 CBC WITH DIFFE RENTI AL/PL ATELE T MCHC 31.3 g/dL 31.5-3 5.7 below low normal Not Available [facility] ([facility]) [address] [place], [address], 05/16/2024 23:07:09 05/15/19 25 05/15/2024 CBC WITH DIFFE RENTI AL/PL ATELE T RDW 12.6 % 11.7-1 5.4 Not Available [facility] ([facility]) [address] [facility], [place], [address], 05/16/2024 23:07:09 05/15/19 25 05/15/2024 CBC WITH DIFFE RENTI AL/PL ATELE T platelets 372 x10e3 /uL 150-45 0 normal Not Available [facility] ([facility]) [address] [facility], [place], [address], 05/16/2024 23:07:09 05/15/19 25 05/15/2024 CBC WITH DIFFE RENTI AL/PL ATELE T neutrophils 66 % not estab. normal Not Available [facility] ([facility]) [address] [facility], [place], [address], 05/16/2024 23:07:09 05/15/19 25 05/15/2024 CBC WITH DIFFE RENTI AL/PL ATELE T lymphs 21 % not estab. normal Not Available [facility] ([facility]) [address] [facility], [place], [address], 05/16/2024 23:07:09 05/15/19 25 05/15/2024 CBC WITH DIFFE RENTI AL/PL ATELE T monocytes 10 % not estab. normal Not Available [facility] ([facility]) [address] [facility], [place], [address], 05/16/2024 23:07:09 05/15/19 25 05/15/2024 CBC WITH DIFFE RENTI AL/PL ATELE T eos 1 % not estab. normal Not Available [facility] ([facility]) [address] [facility], [place], [address], 05/16/2024 23:07:09 05/15/19 25 05/15/2024 CBC WITH DIFFE RENTI AL/PL ATELE T basos 1 % not estab. normal Not Available [facility] ([facility]) [address] [facility], [place], [address], 05/16/2024 23:07:09 05/15/19 25 05/15/2024 CBC WITH DIFFE RENTI AL/PL ATELE T immature cells SUPERVISOR EXTRUSION Not Available [facility] ([facility]) [address] [facility], [place], [address], 05/16/2024 23:07:09 05/15/19 25 05/15/2024 CBC WITH DIFFE RENTI AL/PL ATELE T neutrophils (absolute) 5.9 x10e3 /uL 1.4-7. 0 normal Not Available [facility] ([facility]) [address] [place], [address], 05/16/2024 23:07:09 05/15/19 25 05/15/2024 CBC WITH DIFFE RENTI AL/PL ATELE T lymphs (absolute) 1.9 x10e3 /uL 0.7-3. 1 normal Not Available [facility] ([facility]) [address] [place], [address], 05/16/2024 23:07:09 05/15/19 25 05/15/2024 CBC WITH DIFFE RENTI AL/PL ATELE T monocytes(ab solute) 0.8 x10e3 /uL 0.1-0. 9 normal Not Available [facility] ([facility]) [address] [place], [address], 05/16/2024 23:07:09 05/15/19 25 05/15/2024 CBC WITH DIFFE RENTI AL/PL ATELE T eos (absolute) 0.1 x10e3 /uL 0.0-0. 4 normal Not Available [facility] ([facility]) [address] [place], [address], 05/16/2024 23:07:09 05/15/19 25 05/15/2024 CBC WITH DIFFE RENTI AL/PL ATELE T baso (absolute) 0.1 x10e3 /uL 0.0-0. 2 normal Not Available [facility] ([facility]) [address] [place], [address], 05/16/2024 23:07:09 05/15/19 25 05/15/2024 CBC WITH DIFFE RENTI AL/PL ATELE T immature granulocytes 1 % not estab. Not Available [facility] ([facility]) [address] [place], [address], 05/16/2024 23:07:09 05/15/19 25 05/15/2024 CBC WITH DIFFE RENTI AL/PL ATELE T immature grans (abs) 0.0 x10e3 /uL 0.0-0. 1 Not Available [facility] ([facility]) [address] [facility], [place], [address], 05/16/2024 23:07:09 05/15/19 25 05/15/2024 CBC WITH DIFFE RENTI AL/PL ATELE T NRBC SUPERVISOR EXTRUSION Not Available [facility] ([facility]) [address] [facility], [place], [address], 05/16/2024 23:07:09 05/15/19 25 05/15/2024 CBC WITH DIFFE RENTI AL/PL ATELE T hematology comments: SUPERVISOR EXTRUSION Not Available [facility] ([facility]) [address] [facility], [place], [address], 05/16/2024 23:07:09 05/15/19 25 05/15/2024 COMP. METAB OLIC PANEL (14) glucose 89 mg/dL 70-99 normal Not Available [facility] ([facility]) [address] [facility], [place], [address], 05/16/2024 23:07:10 05/15/19 25 05/15/2024 COMP. METAB OLIC PANEL (14) BUN 17 mg/dL 8-27 normal Not Available [facility] ([facility]) [address] [facility], [place], [address], 05/16/2024 23:07:10 05/15/19 25 05/15/2024 COMP. METAB OLIC PANEL (14) creatinine 0.77 mg/dL 0.57-1 .00 normal Not Available [facility] ([facility]) [address] [facility], [place], [address], 05/16/2024 23:07:10 05/15/19 25 05/15/2024 COMP. METAB OLIC PANEL (14) eGFR 84 mL/mi n/1.7 3 >59 normal Not Available [facility] ([facility]) [address] [facility], [place], [address], 05/16/2024 23:07:10 05/15/19 25 05/15/2024 COMP. METAB OLIC PANEL (14) BUN/creatini ne ratio 22 12-28 normal Not Available [facility] ([facility]) [address] [facility], [place], [address], 05/16/2024 23:07:10 05/15/19 25 05/15/2024 COMP. METAB OLIC PANEL (14) sodium 141 mmol/ L 134-14 4 normal Not Available [facility] ([facility]) [address] [facility], [place], [address], 05/16/2024 23:07:10 05/15/19 25 05/15/2024 COMP. METAB OLIC PANEL (14) potassium 4.6 mmol/ L 3.5-5. 2 normal Not Available [facility] ([facility]) [address] [place], [address], 05/16/2024 23:07:10 05/15/19 25 05/15/2024 COMP. METAB OLIC PANEL (14) chloride 100 mmol/ L 96-106 normal Not Available [facility] ([facility]) [address] [place], [address], 05/16/2024 23:07:10 05/15/19 25 05/15/2024 COMP. METAB OLIC PANEL (14) carbon dioxide, total 25 mmol/ L 20-29 normal Not Available [facility] ([facility]) [address] [place], [address], 05/16/2024 23:07:10 05/15/19 25 05/15/2024 COMP. METAB OLIC PANEL (14) calcium 10.0 mg/dL 8.7-10 .3 normal Not Available [facility] ([facility]) [address] [place], [address], 05/16/2024 23:07:10 05/15/19 25 05/15/2024 COMP. METAB OLIC PANEL (14) protein, total 7.4 g/dL 6.0-8. 5 normal Not Available [facility] ([facility]) [address] [place], [address], 05/16/2024 23:07:10 05/15/19 25 05/15/2024 COMP. METAB OLIC PANEL (14) albumin 4.3 g/dL 3.9-4. 9 normal Not Available [facility] ([facility]) [address] [facility] [place], [address], 05/16/2024 23:07:10 05/15/19 25 05/15/2024 COMP. METAB OLIC PANEL (14) globulin, total 3.1 g/dL 1.5-4. 5 Not Available [facility] ([facility]) [address] [facility] [place], [address], 05/16/2024 23:07:10 05/15/19 25 05/15/2024 COMP. METAB OLIC PANEL (14) bilirubin, total 0.3 mg/dL 0.0-1. 2 normal Not Available [facility] ([facility]) [address] [place], [address], 05/16/2024 23:07:10 05/15/19 25 05/15/2024 COMP. METAB OLIC PANEL (14) alkaline phosphatase 97 IU/L 44-121 normal Not Available [facility] ([facility]) [address] [place], [address], 05/16/2024 23:07:10 05/15/19 25 05/15/2024 COMP. METAB OLIC PANEL (14) AST (SGOT) 20 IU/L 0-40 normal Not Available [facility] ([facility]) [address] [place], [address], 05/16/2024 23:07:10 05/15/19 25 05/15/2024 COMP. METAB OLIC PANEL (14) ALT (SGPT) 21 IU/L 0-32 normal Not Available [facility] ([facility]) [address] [place], [address], 05/16/2024 23:07:10 05/15/19 25 05/15/2024 LIPID PANEL cholesterol, total 172 mg/dL 100-19 9 normal Not Available [facility] ([facility]) [address] [place], [address], 05/16/2024 23:07:10 05/15/19 25 05/15/2024 LIPID PANEL triglyceride s 186 mg/dL 0-149 above high normal Not Available [facility] ([facility]) [address] [place], [address], 05/16/2024 23:07:10 05/15/19 25 05/15/2024 LIPID PANEL HDL cholesterol 35 mg/dL >39 below low normal Not Available [facility] ([facility]) [address] [place], [address], 05/16/2024 23:07:10 05/15/19 25 05/15/2024 LIPID PANEL VLDL cholesterol jesus 33 mg/dL 5-40 Not Available [facility] ([facility]) [address] [place], [address], 05/16/2024 23:07:10 05/15/19 25 05/15/2024 LIPID PANEL LDL chol calc ([facility]) 104 mg/dL 0-99 above high normal Not Available [facility] ([facility]) [address] [place], [address], 05/16/2024 23:07:10 05/15/19 25 05/15/2024 LIPID PANEL LDL calc comment: SUPERVISOR EXTRUSION Not Available [facility] ([facility]) [address], [place], [address], 05/16/2024 23:07:10 05/15/19 25 05/15/2024 HCV ANTIB KIM CASCA DE(PC R/GEN O) HCV Ab Non Reacti ve non reacti ve Not Available [facility] ([facility]) [address], [place], [address], 05/16/2024 23:07:10 05/15/19 25 05/15/2024 HCV ANTIB KIM CASCA DE(PC R/GEN O) interpretati on: Commen t Not infec ulysses with HCV unles s early or acute infec tion is suspe cted (whic h may be delay ed in an immun ocomp romis ed indiv idual ), or other evide nce exist s to indic ate HCV infec tion. Not Available [facility] ([facility]) [address] [facility], [place], [address], 05/16/2024 23:07:10 05/15/1905/15/2024 TSH TSH 1.110 uIU/m L 0.450- 4.500 normal Not Available [facility] ([facility]) [address] [facility], [place], [address], 05/16/2024 23:07:11 05/15/1905/15/2024 RHEUM ATOID FACTO R (RF) rheumatoid factor (rf) <10.0 IU/mL <14.0 Not Available [facility] ([facility]) [address] [facility], [place], [address], 05/16/2024 23:07:11 05/15/19 25 05/15/2024 VITAM IN D, 25-HY DROXY vitamin D, 25-hydroxy 48.6 NG/mL 30.0-1 00.0 Vitam in D defic [...] IOM (Inst itute of Medic ine). 2010. Du ry refer ence intak es for calci um and D. Judy hubbard [place]: The [facility] Press . 2. Aaron k [place], William kaur [place], Bisch off-F errar i LEVINE, et al. Evalu ation , treat ment, and preve ntion of vitam in D defic iency : an Endoc rine Socie ty clini jesus pract ice guide line. JCEM. 2010; 96(7) :1911 -30. Not Available [facility] ([facility]) [address] [facility], [place], [address], 05/16/2024 23:07:11 05/15/19 25 05/15/2024 HIV AB/P2 4 AG WITH REFLE X HIV Ab/P24 Ag screen Non Reacti ve non reacti ve HIV-1 /HIV- 2 antib odies and HIV-1 p24 antig en were NOT detec ulysses. There is no labor atory evide nce of HIV infec tion. HIV Negat nahed Not Available [facility] ([facility]) [address] [place], [address], 05/16/2024 23:07:12 05/15/19 25 05/15/2024 ANTI- CCP AB, IGG/I GA anti-ccp Ab, IgG/IgA 3 units 0-19 Negat nahed <20 Weak posit nahed 20 - 39 Moder ate posit nahed 40 - 59 Stron g posit nahed >59 Not Available [facility] ([facility]) [address] [facility], [place], [address], 05/16/2024 23:07:12 05/15/19 25 05/15/2024 ANTIN UCLEA R AB MULTI PLEX RFX 9 JESUS direct Negati ve negati ve Not Available [facility] ([facility]) [address] [facility], [place], [address], 05/16/2024 23:07:12 05/15/19 25 05/15/2024 SEDIM ENTAT ION RATE- WESTE RGREN sedimentatio n rate-westerg diana 34 mm/HR 0-40 normal Not Available [facility] ([facility]) [address] [facility], [place], [address], 05/16/2024 23:07:13 05/15/19 25 05/15/2024 C-PRITI CTIVE PROTE IN, QUANT C-reactive protein, quant 55 mg/L 0-10 above high normal Not Available [facility] ([facility]) [address] [facility], [place], [address], 05/16/2024 23:07:13 05/15/19 25 05/16/2024 URINE CULTU RE, ROUTI NE urine culture, routine Final report abnormal Not Available [facility] ([facility]) [address] [facility], [place], [address], 05/16/2024 23:07:13 05/15/19 25 05/16/2024 URINE CULTU RE, ROUTI NE result 1 Escher ichia coli abnormal Cefaz emily with an MAHI <=16 predi cts susce ptibi lity to the oral agent s cefac florence, cefdi giovnai, cefpo doxim e, cefpr ozil, cefur oxime , cepha lexin , and lorac arbef when used for thera py of uncom plica ulysses urina ry tract infec tions due to E. coli, Klebs iella pneum oniae , and Prote us mirab ilis. 50,00 0-100 ,000 colon y formi ng units per mL Not Available [facility] ([facility]) [address] [facility], [place], [address], 05/16/2024 23:07:13 05/15/19 25 05/16/2024 URINE CULTU RE, ROUTI NE antimicrobia l susceptibili ty Commen t S = Susce ptibl e; I = Inter media te; R = Resis tant P = Posit nahed; N = Negat nahed MICS are expre ssed in micro grams per mL Antib iotic RSLT# 1 RSLT# 2 RSLT# 3 RSLT# 4 Amoxi cilli n/Cla vulan ic Acid S Ampic illin S Cefaz emily S Cefep siria S Cefox itin S Cefpo doxim e S Ceftr iaxon e S Cipro floxa senait S Ertap enem S Genta micin S Levof loxac in S Merop enem S Nitro furan toin S Piper acill in/Ta zobac le S Tetra cycli ne S Tobra mycin S Trime thopr im/[place] lfa S Not Available [facility] ([facility]) [address] [facility], [place], [address], 05/16/2024 23:07:13 05/15/19 25 05/14/2024 rapid SARS CoV 2 Ag, QL, IA, upper respi rator y speci men SARS CoV Ag negati ve Not Available [address], [address], 05/14/2024 09:50:07 05/15/19 25 05/14/2024 rapid flu (A+B) Flu A negati ve Not Available [address], [address], 05/14/2024 09:50:14 05/15/19 25 05/14/2024 rapid flu (A+B) Flu B negati ve Not Available [address], [address], 05/14/2024 09:50:14 05/15/19 25 05/14/2024 urina lysis , dipst ick Leukocytes Large Not Available [address], [place], [address], 05/14/2024 09:45:53 05/15/19 25 05/14/2024 urina lysis , dipst ick Nitrite negati ve Not Available [address], [place], [address], 05/14/2024 09:45:53 05/15/19 25 05/14/2024 urina lysis , dipst ick Urobilinogen .2 Not Available [address], [place], [address], 05/14/2024 09:45:53 05/15/19 25 05/14/2024 urina lysis , dipst ick Protein Negati ve Not Available [address], [place], [address], 05/14/2024 09:45:53 05/15/19 25 05/14/2024 urina lysis , dipst ick pH 7.0 Not Available [address], [place], [address], 05/14/2024 09:45:53 05/15/19 25 05/14/2024 urina lysis , dipst ick Blood Non-He molyze d: Trace Not Available [address], [place], [address], 05/14/2024 09:45:53 05/15/19 25 05/14/2024 urina lysis , dipst ick Specific [place] 1.025 Not Available [address], [place], [address], 05/14/2024 09:45:53 05/15/19 25 05/14/2024 urina lysis , dipst ick Ketone Negati ve Not Available [address], [place], [address], 05/14/2024 09:45:53 05/15/19 25 05/14/2024 urina lysis , dipst ick Bilirubin Negati ve Not Available [address], [place], [address], 05/14/2024 09:45:53 05/15/19 25 05/14/2024 urina lysis , dipst ick Glucose Negati ve Not Available [address], [place], [address], 05/14/2024 09:45:53 05/15/19 25 05/14/2024 urina lysis , dipst ick Appearance Clear Not Available [address], [place], [address], 05/14/2024 09:45:53 05/15/19 25 05/14/2024 urina lysis , dipst ick Color Dark Yellow Not Available [address], [address], 05/14/2024 09:45:53 12/27/19 25 12/27/2024 CBC WITH DIFFE RENTI AL/PL ATELE T WBC 7.5 x10e3 /uL 3.4-10 .8 normal Not Available [facility] ([facility]) [address] [facility], [place], [address], 12/27/2024 11:09:24 12/27/19 25 12/27/2024 CBC WITH DIFFE RENTI AL/PL ATELE T RBC 4.63 x10e6 /uL 3.77-5 .28 normal Not Available [facility] ([facility]) [address] [facility], [place], [address], 12/27/2024 11:09:24 12/27/1912/27/2024 CBC WITH DIFFE RENTI AL/PL ATELE T hemoglobin 13.8 g/dL 11.1-1 5.9 normal Not Available [facility] ([facility]) [address] [place], [address], 12/27/2024 11:09:24 12/27/19 25 12/27/2024 CBC WITH DIFFE RENTI AL/PL ATELE T hematocrit 41.9 % 34.0-4 6.6 normal Not Available [facility] ([facility]) [address] [facility], [place], [address], 12/27/2024 11:09:24 12/27/19 25 12/27/2024 CBC WITH DIFFE RENTI AL/PL ATELE T MCV 91 fL 79-97 normal Not Available [facility] ([facility]) [address] [facility], [place], [address], 12/27/2024 11:09:24 12/27/1912/27/2024 CBC WITH DIFFE RENTI AL/PL ATELE T MCH 29.8 pg 26.6-3 3.0 normal Not Available [facility] ([facility]) [address] [place], [address], 12/27/2024 11:09:24 12/27/1912/27/2024 CBC WITH DIFFE RENTI AL/PL ATELE T MCHC 32.9 g/dL 31.5-3 5.7 normal Not Available [facility] ([facility]) [address] [place], [address], 12/27/2024 11:09:24 12/27/19 25 12/27/2024 CBC WITH DIFFE RENTI AL/PL ATELE T RDW 13.1 % 11.7-1 5.4 Not Available [facility] ([facility]) [address] [facility], [place], [address], 12/27/2024 11:09:24 12/27/1912/27/2024 CBC WITH DIFFE RENTI AL/PL ATELE T platelets 285 x10e3 /uL 150-45 0 normal Not Available [facility] ([facility]) [address] [facility], [place], [address], 12/27/2024 11:09:24 12/27/1912/27/2024 CBC WITH DIFFE RENTI AL/PL ATELE T neutrophils 57 % not estab. normal Not Available [facility] ([facility]) [address] [facility], [place], [address], 12/27/2024 11:09:24 12/27/1912/27/2024 CBC WITH DIFFE RENTI AL/PL ATELE T lymphs 32 % not estab. normal Not Available [facility] ([facility]) [address] [facility], [place], [address], 12/27/2024 11:09:24 12/27/1912/27/2024 CBC WITH DIFFE RENTI AL/PL ATELE T monocytes 7 % not estab. normal Not Available [facility] ([facility]) [address] [facility], [place], [address], 12/27/2024 11:09:24 12/27/1912/27/2024 CBC WITH DIFFE RENTI AL/PL ATELE T eos 3 % not estab. normal Not Available [facility] ([facility]) [address] [facility], [place], [address], 12/27/2024 11:09:24 12/27/1912/27/2024 CBC WITH DIFFE RENTI AL/PL ATELE T basos 1 % not estab. 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 0 normal Not Available [facility] ([facility]) [address] [place], [address], 12/27/2024 11:09:24 12/27/19 25 12/27/2024 CBC WITH DIFFE RENTI AL/PL ATELE T lymphs (absolute) 2.4 x10e3 /uL 0.7-3. 1 normal Not Available [facility] ([facility]) [address] [place], [address], 12/27/2024 11:09:24 12/27/19 25 12/27/2024 CBC WITH DIFFE RENTI AL/PL ATELE T monocytes(ab solute) 0.5 x10e3 /uL 0.1-0. 9 normal Not Available [facility] ([facility]) [address] [place], [address], 12/27/2024 11:09:24 12/27/19 25 12/27/2024 CBC WITH DIFFE RENTI AL/PL ATELE T eos (absolute) 0.2 x10e3 /uL 0.0-0. 4 normal Not Available [facility] ([facility]) [address] [place], [address], 12/27/2024 11:09:24 12/27/19 25 12/27/2024 CBC WITH DIFFE RENTI AL/PL ATELE T baso (absolute) 0.0 x10e3 /uL 0.0-0. 2 normal Not Available [facility] ([facility]) [address] [facility] [place], [address], 12/27/2024 11:09:24 12/27/19 25 12/27/2024 CBC WITH DIFFE RENTI AL/PL ATELE T immature granulocytes 0 % not estab. Not Available [facility] ([facility]) [address] [facility], [place], [address], 12/27/2024 11:09:24 12/27/19 25 12/27/2024 CBC WITH DIFFE RENTI AL/PL ATELE T immature grans (abs) 0.0 x10e3 /uL 0.0-0. 1 Not Available [facility] ([facility]) [address] [facility], [place], [address], 12/27/2024 11:09:24 12/27/19 25 12/27/2024 CBC WITH DIFFE RENTI AL/PL ATELE T NRBC SUPERVISOR EXTRUSION Not Available [facility] ([facility]) [address] [facility], [place], [address], 12/27/2024 11:09:24 12/27/1912/27/2024 CBC WITH DIFFE RENTI AL/PL ATELE T hematology comments: SUPERVISOR EXTRUSION Not Available [facility] ([facility]) [address] [facility], [place], [address], 12/27/2024 11:09:24 12/27/19 25 12/27/2024 COMP. METAB OLIC PANEL (14) glucose 88 mg/dL 70-99 normal Not Available [facility] ([facility]) [address] [facility], [place], [address], 12/27/2024 11:09:25 12/27/19 25 12/27/2024 COMP. METAB OLIC PANEL (14) BUN 25 mg/dL 8-27 normal Not Available [facility] ([facility]) [address] [facility], [place], [address], 12/27/2024 11:09:25 12/27/19 25 12/27/2024 COMP. METAB OLIC PANEL (14) creatinine 0.78 mg/dL 0.57-1 .00 normal Not Available [facility] ([facility]) [address] [place], [address], 12/27/2024 11:09:25 12/27/19 25 12/27/2024 COMP. METAB OLIC PANEL (14) eGFR 83 mL/mi n/1.7 3 >59 normal Not Available [facility] ([facility]) [address] [facility], [place], [address], 12/27/2024 11:09:25 12/27/1912/27/2024 COMP. METAB OLIC PANEL (14) BUN/creatini ne ratio 32 12-28 above high normal Not Available [facility] ([facility]) [address] [facility], [place], [address], 12/27/2024 11:09:25 12/27/19 25 12/27/2024 COMP. METAB OLIC PANEL (14) sodium 141 mmol/ L 134-14 4 normal Not Available [facility] ([facility]) [address] [place], [address], 12/27/2024 11:09:25 12/27/19 25 12/27/2024 COMP. METAB OLIC PANEL (14) potassium 4.6 mmol/ L 3.5-5. 2 normal Not Available [facility] ([facility]) [address] [place], [address], 12/27/2024 11:09:25 12/27/19 25 12/27/2024 COMP. METAB OLIC PANEL (14) chloride 99 mmol/ L 96-106 normal Not Available [facility] ([facility]) [address] [facility], [place], [address], 12/27/2024 11:09:25 12/27/19 25 12/27/2024 COMP. METAB OLIC PANEL (14) carbon dioxide, total 22 mmol/ L 20-29 normal Not Available [facility] ([facility]) [address] [place], [address], 12/27/2024 11:09:25 12/27/19 25 12/27/2024 COMP. METAB OLIC PANEL (14) calcium 9.7 mg/dL 8.7-10 .3 normal Not Available [facility] ([facility]) [address] [place], [address], 12/27/2024 11:09:25 12/27/19 25 12/27/2024 COMP. METAB OLIC PANEL (14) protein, total 7.2 g/dL 6.0-8. 5 normal Not Available [facility] ([facility]) [address] [facility] [place], [address], 12/27/2024 11:09:25 12/27/19 25 12/27/2024 COMP. METAB OLIC PANEL (14) albumin 4.7 g/dL 3.9-4. 9 normal Not Available [facility] ([facility]) [address] [place], [address], 12/27/2024 11:09:25 12/27/19 25 12/27/2024 COMP. METAB OLIC PANEL (14) globulin, total 2.5 g/dL 1.5-4. 5 Not Available [facility] ([facility]) [address] [place], [address], 12/27/2024 11:09:25 12/27/19 25 12/27/2024 COMP. METAB OLIC PANEL (14) bilirubin, total 0.4 mg/dL 0.0-1. 2 normal Not Available [facility] ([facility]) [address] [place], [address], 12/27/2024 11:09:25 12/27/19 25 12/27/2024 COMP. METAB OLIC PANEL (14) alkaline phosphatase 98 IU/L 49-135 normal Not Available [facility] ([facility]) [address] [place], [address], 12/27/2024 11:09:25 12/27/19 25 12/27/2024 COMP. METAB OLIC PANEL (14) AST (SGOT) 29 IU/L 0-40 normal Not Available [facility] ([facility]) [address] [place], [address], 12/27/2024 11:09:25 12/27/19 25 12/27/2024 COMP. METAB OLIC PANEL (14) ALT (SGPT) 28 IU/L 0-32 normal Not Available [facility] ([facility]) [address] [place], [address], 12/27/2024 11:09:25 12/27/19 25 12/27/2024 LIPID PANEL cholesterol, total 197 mg/dL 100-19 9 normal Not Available [facility] ([facility]) [address] [place], [address], 12/27/2024 11:09:26 12/27/19 25 12/27/2024 LIPID PANEL triglyceride s 330 mg/dL 0-149 above high normal Not Available [facility] ([facility]) [address] [place], [address], 12/27/2024 11:09:26 12/27/19 25 12/27/2024 LIPID PANEL HDL cholesterol 48 mg/dL >39 normal Not Available [facility] ([facility]) [address] [place], [address], 12/27/2024 11:09:26 12/27/19 25 12/27/2024 LIPID PANEL VLDL cholesterol jesus 55 mg/dL 5-40 above high normal Not Available [facility] ([facility]) [address] [place], [address], 12/27/2024 11:09:26 12/27/19 25 12/27/2024 LIPID PANEL LDL chol calc ([facility]) 94 mg/dL 0-99 Not Available [facility] ([facility]) [address] [facility], [place], [address], 12/27/2024 11:09:26 12/27/19 25 12/27/2024 LIPID PANEL LDL calc comment: SUPERVISOR EXTRUSION Not Available [facility] ([facility]) [address] [facility], [place], [address], 12/27/2024 11:09:26 12/27/19 25 12/27/2024 TSH TSH 1.260 uIU/m L 0.450- 4.500 normal Not Available [facility] ([facility]) [address] [facility], [place], [address], 12/27/2024 11:09:27 12/27/1912/27/2024 VITAM IN D, 25-HY [...] Endoc rine Socie ty [facility] er defin e vitam in D insuf ficie ncy as a level betwe en 21 and 29 ng/mL (2). 1. IOM (Inst itute of Medic ine). 2010. Dieta ry refer ence intak es for calci um and D. Judy hubbard [place]: [facility] . 2. Aaron samuels [place], William kaur [place], Deysi off-F susanne i LEVINE, et al. Evalu ation , treat ment, and preve ntion of vitam in D defic iency : an Endoc rine Socie ty clini jesus pract ice guide line. JCEM. 2010; 96(7) :1911 -30. Not Available [facility] ([facility]) [address] [facility], [place], [address], 12/27/2024 11:09:28 04/02/19 25 03/27/2024 MAMMO , taje jackelyn, digit al, bilat eral No observ ation record ed. [facility] (Scheduling) [address], [place], [address], 04/02/2024 10:14:09 Result Notes None recorded. Problems Name Problem SNOMED Code Status Onset Date Resolution Date Notes Provider Name and Address Organization Details Recorded Time Acute urinary tract infection 920515386 Active 2024 ELOISA Lopez [address] [place] [address], [address], [employer] 10:15:52 Hyperlipide gera 15357245 Active 2024 ELOISA Lopez [address] [place] [address], [address], [employer] 5 10:16:04 Osteoarthri tis 215977871 Active 2024 ELOISA Lopez [address] [place] [address], [address] 8, [employer] 10:16:10 Pain of elbow region 46925116 Active 2024 ELOISA Lopez [address] [place] [address], [address], [employer] 10:09:08 Mild dehydration 3777977994337 Active 2024 ELOISA Lopez [address] [place] [address], [address], [employer] 13:17:05 Problem Notes None recorded. Procedures Surgical History Date Name Laterality Status Provider Name and Address Organization Details Recorded Time 03/27/19 25 Most Recent Mammogram completed Rasheeda [facility] [employer] 05/14/2024 09:44:35 03/15/19 Shave Biopsy completed ELOISA Lopez [address] [place] [address], [address], [place] [employer] 03/15/2024 11:26:58 Back Surgery completed [employer] [facility] [employer] 03/15/2024 09:44:33 Hysterectomy completed [employer] [facility] [employer] 03/15/2024 09:44:33 Other completed [employer] 03/15/2024 09:55:06 Imaging Results None recorded. Procedure Notes None recorded. Medical Equipment None Reported. Allergies Allergen ID Allergen Name Allergen Category Reaction Reaction Severity Criticality Documentation Date Start Date Code Code System Note Provider Name and Address Organization Details Recorded Time 77671 Product containin g penicilli n (product) medicatio n rash Not available Not available 03/15/2024 68275 8001 SNOMED [employer] 09:50:39 80978 ampicilli n medicatio n Not available Not available Not available 03/15/2024 733 RxNorm [employer], [employer] 09:50:36 Medications Name Sig Start Date [...] No t Available Vitals Date Recorded Body weight Body mass index (BMI) Body height Oxygen saturation Oxygen saturation in Arterial blood by Pulse oximetry Heart rate Systolic And Diastolic Systolic And Diastolic Systolic And Diastolic Systolic And Diastolic Provider Name and Address Organization Details Last Updated DateTime 5 91180.6 4 g 23.7 kg/m2 167.64 cm 98 % 98 % 92 /min 158/90 mm[Hg] 144/84 mm[Hg] 140/82 mm[Hg] 142/80 mm[Hg] [employer], [facility] 5 10:01:25 Date Recorded Body height Body mass index (BMI) Body weight Heart rate Oxygen saturation Oxygen saturation in Arterial blood by Pulse oximetry Body temperature Systolic And Diastolic Provider Name and Address Organization Details Last Updated DateTime 5 167.64 cm 23.3 kg/m2 26947.4 6 g 96 /min 97 % 97 % 98.4 [degF] 134/78 mm[Hg] [employer] 5 09:42:02 Date Recorded Body height Body mass index (BMI) Body weight Oxygen saturation Oxygen saturation in Arterial blood by Pulse oximetry Heart rate Body temperature Oxygen saturation Oxygen saturation in Arterial blood by Pulse oximetry Heart rate Systolic And Diastolic Systolic And Diastolic Systolic And Diastolic Systolic And Diastolic Provider Name and Address Organization Details Last Updated DateTime 5 167.64 cm 23.8 kg/m2 67028.8 g 97 % 97 % 90 /min 98.4 [degF] 95 % 95 % 98 /min 136/80 mm[Hg] 146/80 mm[Hg] 128/78 mm[Hg] 148/84 mm[Hg] Rasheeda [facility]ta [employer] 09:40:09 Date Recorded Body height Body mass index (BMI) Body weight Body temperature Heart rate Oxygen saturation Oxygen saturation in Arterial blood by Pulse oximetry Systolic And Diastolic Systolic And Diastolic Provider Name and Address Organization Details Last Updated DateTime 167.64 cm 24.5 kg/m2 85354.0 4 g 98 [degF] 92 /min 95 % 95 % 151/84 mm[Hg] 147/90 mm[Hg] Kaylin Piña [employer]. 10:36:50 Social History Question Answer Notes LastModified by Organizat ion Details LastModified Time Tobacco Smoking Status Former Smoker Rasheeda Orta [employer], [employer]. 03/15/2024 09:44:32 Do You Have An Advance [...] available 03/15/2024 Are You A Caregiver? No Information not available 12/26/2024 What Type Of Tower Operator Do You Use? None Information not available [...] Or The Highest Degree You Have Received? HV78021-1 [email or web address] Information not available 12/26/2024 How Many Days [...] Brisk Walk, Jogging, Strength Training, Etc)? No [email or web address] Information not available 12/26/2024 What Is Your Home Situation? Other Information not available 03/15/2024 How Many Times In The Past Year Have You Used An Illegal Drug Or Used A Prescription Medication For Nonmedical Reasons? 0 [email or web address] Information not available 12/26/2024 Where Do You Live? Apartment [email or web address] Information not available 12/26/2024 Do You Have A Medical Power Of Union Organizer? No Information not available 03/15/2024 What Was The Date Of Your Most Recent Tobacco Screening? 12/26/2024 [email or web address] Information not available 12/26/2024 Have You Ever Been Counseled For Unhealthy Alcohol Use? No [email or web address] Information not available 12/26/2024 Do You Have Any Pets? Yes Information not available 03/15/2024 What Is Your Relationship Status? Information not available 03/15/2024 Have You Repeated Any Grades? Yes Information not available 03/15/2024 Do You Wear A Seatbelt When Driving Or As A Passenger? Yes [email or web address] Information not available 12/26/2024 Do You Use [...] Sporting Activities Do You Participate In? None [email or web address] Information not available 12/26/2024 Do You Use [...] You Feel Safe In Your Home? Yes [email or web address] Information not available 12/26/2024 Do You Have Any Dietary Restrictions? No Information not available 03/15/2024 How Many Days In The Past Year Have You Consumed 4 Or More Drinks? 2 Information no t available 03/15/2024 Sex: Female Functional Status Question Answer Note LastModified by Organizat ion Details LastModified Time How many times per week do you consume alcohol? 1-2 times per week [email or web address] Information not available 12/26/2024 Do you use any illicit or recreational drugs? No Information not available 03/15/2024 Do you feel safe in your relationship? Yes [email or web address] Information not available 12/26/2024 Do you or [...] Mental Status Question Answer Note LastModified by Organizat ion Details LastModified Time Do you feel stressed (tense, restless, nervous, or anxious, or unable to sleep at night)? [id number] Information not available 03/15/2024 Do you have [...] Artery Disease N Other N Gout N Blood Diseases N Kidney Stones N Hyperthyroidism N Blood Transfusion N Breast Cancer N Emergency room visit since last appointm ent. N Lung Disease N COPD N Depression N Dermatologic Disorders N Hypothyroidism N Defects or Inherited Disease N Developmental [...] Condition N Organ Transplant N Dialysis N Schizophrenia N Fibromyalgia N Headaches N Kidney Disease N Allergies/Hayfever N Heart Problems N Ear or Hearing Problems N Hospitalizations N Learning Disorder N Artificial Joints N Thyroid Problems N GI Problems N Acne N ADD/ADHD N Eating Disorder N Anemia N Constipation N Mental Illness N Diabetes N Ovarian Cancer N Bedwetting N Hepatitis/Liver Disease N Tuberculosis N Eczema N Abuse/Domestic Violence N Diverticulitis N Asthma N Trauma/Violence N Substance Abuse N Amnesia/Cognitive Decline N Reflux/GERD N Depression/ depression N Hepatitis N Heart Disease N Pulmonary Embolism N Tourette Syndrome N Chronic Ear Infections N Pre-Eclampsia N Hypertension N Chicken Pox N Autism Spectrum Disorder (ASD) N Osteoporosis N Thrombophilias N Gynecological History Statement/Question Response [...] Details Recorded Time Pneumococcal conjugate PCV21, polysaccharide [id number] conjugate, PF 5 completed Rasheeda Vice null, [employer] 12/26/2024 11:37:57 Influenza, high-dose, trivalent, PF 5 completed Rasheeda Vice null, [employer]. 12/26/2024 11:38:41 COVID-19, mRNA, LNP-S, PF, joss-sucrose, 30 mcg/0.3 mL 5 completed Rasheeda Vice null, [employer] 12/26/2024 11:40:07 Tdap 5 completed Rasheeda Vice null, [employer]. 12/26/2024 11:40:59 Influenza, split virus, quadrivalent, preservative 9 completed Rasheeda Vice null, [employer]. 05/14/2024 09:39:19 Influenza, adjuvanted, trivalent, PF 4 completed Rasheeda Vice null, [employer] 05/14/2024 09:39:19 zoster recombinant 2 completed Rasheeda Vice null, [employer] 05/14/2024 09:39:19 zoster recombinant 2 completed Rasheeda Vice null, [employer] 05/14/2024 09:39:19 Influenza, high-dose, quadrivalent, PF 2 completed Rasheeda Vice null, [employer] 05/14/2024 09:39:19 Influenza, high-dose, quadrivalent, PF 3 completed Rasheeda Vice null, [employer] 05/14/2024 09:39:19 COVID-19, mRNA, LNP-S, PF, 30 mcg/0.3 mL dose 1 completed Rasheeda Vice null, [employer] 05/14/2024 09:39:19 COVID-19, mRNA, LNP-S, PF, 30 mcg/0.3 mL dose 1 completed Rasheeda Vice null, [employer] 05/14/2024 09:39:19 COVID-19, mRNA, LNP-S, PF, 30 mcg/0.3 mL dose 1 completed Rasheeda Vice null, [employer] 05/14/2024 09:39:19 COVID-19, mRNA, LNP-S, PF, 30 mcg/0.3 mL dose, joss-sucrose 2 completed Rasheeda Vice null, [employer] 05/14/2024 09:39:19 COVID-19, mRNA, LNP-S, bivalent, PF, 50 mcg/0.5 mL or 25mcg/0.25 mL dose 2 completed Rasheeda Vice null, [employer] 05/14/2024 09:39:19 RSV, recombinant, protein subunit RSVpreF, adjuvant reconstituted, 0.5 mL, PF 3 completed Rasheeda Vice null, [employer] 05/14/2024 09:39:19 COVID-19, mRNA, LNP-S, PF, joss-sucrose, 30 mcg/0.3 mL 4 completed Rasheeda Vice null, [employer] 05/14/2024 09:39:19 COVID-19, mRNA, LNP-S, PF, 50 mcg/0.5 mL 3 completed Rasheeda Vice null, [employer] 05/14/2024 09:39:19 Influenza, split virus, quadrivalent, PF 0 completed Rasheeda Vice null, [employer] 05/14/2024 09:39:19 Past Encounters Encounter ID Performer Location Encounter Start Date Encounter Closed Date Diagnosis/Indication Diagnosis SNOMED-CT Code Diagnosis ICD10 Code Diagnosis IMO Codes Diagnosis Note [id number] Yessenia Jaimes [address] [address] 03/15/2024 09:16:21 03/15/2024 11:35:35 Screening mammography 88737906 Z12.31 Lesion of skin of nose 3348382135 4875038 J34.89 [id number] ELOISA Lopez [address] [address] 05/14/2024 09:30:16 05/14/2024 10:23:04 Abnormal urine odor 8551557 R82.90 Generalize d aches and pains 37055491 R52 Acute urin shorty tract infection 754216570 N39.0 Hyperlipidemia 57518475 E78.5 Osteoarthritis 403082341 M19.90 Fatigue 40777181 R53.83 HIV screening 798582169 Z11.4 Hepatitis C screening 41 7952042 Z11.59 [id number] ELOISA Lopez [address] [address] 10/11/2024 09:21:49 10/11/2024 10:06:07 Pain of elbow region 09116881 M25.521 274742 Mild dehydration 7064133 119 108 E86.0 489323 I believe headache is likely due to mild dehydratio n - will consciousl y try to drink more water and electrolyt es; will RTC if does not improve [id number] ELOISA Lopez [facility] [address] [place] [address] 12/26/2024 10:28:59 12/26/2024 11:35:01 Requires vaccination against Streptococcus pneumoniae 0775147983 Z23 168257 Requires i nfluenza virus vaccination 559682097 Z23 922486 Vaccination needed 26058 53844 31836 Z23 [id number] Requires d iphtheria, tetanus and pertussis vaccination 176493577 Z23 393369 Screening for osteoporosis 552269269 Z13.820 Screening for malignant neoplasm of lung 845938682 Z12.2 5611433287 19 year pack history Hyperlipidemia 35734210 E78.5 [id number] History an d physical examination, annual for health maintenance 76731789 Z00.00 [id number] Health Concerns Section Related Observation LastModified by Organization Detai ls LastModified Time None Recorded Concern Status LastModified by Organization Details LastModified Time None Recorded Advance Directives Directive N: Payers Insurance Date Sequence Insurance Name Policy Number Policy [place] Covered Member ID [place] Member ID Guarantor Name 12/23/2024 [place] [employer] - [facility] Estephania Fox [id number] Estephania Fox 12/23/2024 1 [employer] (MEDICARE REPLACEMENT/A DVANTAGE - PPO) Estephania Fox [id number] Estephania Fox Notes Date Note Type Note Provider Name and Address Organization Details Recorded Time 03/15/2024 text/html Lesion on the left side of nose for a month or two. Getting larger. Interferes with vision somewhat because she can see it in her field of vision. ELOISA Lopez [address] [place] [address], [id number], [facility] [employer] [facility] 03/15/2024 11:28:20 05/14/2024 text/html ROS as noted in the HPI Patient has not felt well for a few weeks.Urine is strong, dark in color.Joints are achy and sore. SHe is more tired than normal. Doesn't feel like doing much. ELOISA Lopez [address] [place], [address], [employer]. 05/16/2024 12:52:44 10/11/2024 text/html ROS as noted in the HPI FOr the past few weeks, patient has had dull headache. Worse when she stands up, gets throbbing in ears for a few minutes. No blurred vision. No chest pain. No syncope. States she does not drink enough water.Was pulling a coffee table to move it a few weeks ago and had pain in her right elbow. It still hurts to touch and with certain movements. Mild swelling. ELOISA Lopez [address] [place], [address], [employer]. 10/15/2024 13:18:15 12/26/2024 text/html Medicare Annual Wellness VisitReported by [...] for Medicare Annual Wellness Exam ELOISA Lopez [address] [place], [address], [employer]. 12/26/2024 17:43:31 OBGyn Episode No OBEpisode recorded.
== END 2025-01-14 23:59 | disposition home or self-care (01) ==
LOC: RAD 08:43
PROVIDERS: PCP Physician Assistant; Visit Provider Physician Assistant
DX: M85.88 Other specified disorders of bone density and structure, other site (principal); M85.852 Other specified disorders of bone density and structure, left thigh; Z12.2 Encounter for screening for malignant neoplasm of respiratory organs; Z13.820 Encounter for screening for osteoporosis; Z87.891 Personal history of nicotine dependence
CPT/HCPCS: 71271; 77080